=== PATIENT | male | born 1960 | race Caucasian/White ===

== ENCOUNTER 2023-07-09 08:14 | Outpatient (CLI) | payer OTHER ==
[2023-07-09] MEDS ORDERED: Iopamidol 370 76% 100 ML VIAL ONE (09:03)
== END 2023-07-09 08:15 | disposition home or self-care (01) ==
LOC: CT 08:14
PROVIDERS: ATTEND Family Medicine
DX: I71.40 Abdominal aortic aneurysm, without rupture, unspecified (principal)
CPT/HCPCS: 74175; Q9967

== ENCOUNTER 2023-07-21 07:23 | Outpatient (CLI) | payer OTHER ==
[2023-07-21] MEDS ORDERED: Iopamidol 370 76% 100 ML VIAL ONE ×2 (08:56→08:59)
== END 2023-07-21 07:24 | disposition home or self-care (01) ==
LOC: CT 07:23
PROVIDERS: ATTEND Family Medicine
DX: R91.8 Other nonspecific abnormal finding of lung field (principal); I70.0 Atherosclerosis of aorta; J98.09 Other diseases of bronchus, not elsewhere classified; I77.1 Stricture of artery; J98.11 Atelectasis; I70.203 Unspecified atherosclerosis of native arteries of extremities, bilateral legs
CPT/HCPCS: 71260; 75635; Q9967

== ENCOUNTER 2023-07-31 08:16 | Day surgery (SDC) | payer OTHER ==
[2023-07-30 13:03] VITALS: BMI 31.2
[2023-07-31] MEDS ORDERED: Sodium Chloride 0.9% 1,000 ML IV SCH (09:00)
[2023-07-31] MEDS ORDERED: Lidocaine 4% PF 5 ML AMP NEB SCH (09:00)
[2023-07-31] MEDS ORDERED: Ipratropium/Albuterol 3 ML NEB NEB SCH (09:00)
[2023-07-31] MEDS ORDERED: SUGAMMADEX SODIUM 200 MG/2 ML VIAL ONE (10:10)
[2023-07-31] MEDS ORDERED: fentaNYL PF 100 MCG/2 ML SYRINGE ONE (10:10)
[2023-07-31] MEDS ORDERED: Rocuronium Bromide 10 MG/ML (10ML VIAL) ONE (10:38)
[2023-07-31] MEDS ORDERED: PROPOFOL 200 MG/20 ML VIAL ONE (10:38)
[2023-07-31] MEDS ORDERED: Succinylcholine 200 MG/10 ml SYRINGE FS ONE (10:38)
[2023-07-31] MEDS ORDERED: Lidocaine 1% PF 5 ML VIAL ONE (10:38)
== END 2023-07-31 13:17 | disposition home or self-care (01) ==
LOC: SDC 08:16
PROVIDERS: ATTEND Internal Medicine
PROC: 0BBK8ZX Excision of Right Lung, Via Natural or Artificial Opening Endoscopic, Diagnostic (ICD-10-PCS; principal; 2023-07-31)
PROC: 0BB38ZX Excision of Right Main Bronchus, Via Natural or Artificial Opening Endoscopic, Diagnostic (ICD-10-PCS; principal; 2023-07-31)
DX: C34.91 Malignant neoplasm of unspecified part of right bronchus or lung (principal); C85.23 Mediastinal (thymic) large B-cell lymphoma, intra-abdominal lymph nodes; E11.9 Type 2 diabetes mellitus without complications; I10 Essential (primary) hypertension; I63.9 Cerebral infarction, unspecified; I71.40 Abdominal aortic aneurysm, without rupture, unspecified; I48.0 Paroxysmal atrial fibrillation; R59.0 Localized enlarged lymph nodes; Z87.891 Personal history of nicotine dependence; Z79.01 Long term (current) use of anticoagulants
CPT/HCPCS: 88172; 88173; 88177; 88305; 88341; 88342; 94640; J2704; J7620

== ENCOUNTER 2023-08-12 10:15 | Outpatient (CLI) | payer OTHER | END 2023-08-12 10:16 | disposition home or self-care (01) | LOC: PET 10:15 | PROVIDERS: ATTEND Internal Medicine | DX: C34.31 Malignant neoplasm of lower lobe, right bronchus or lung (principal); R91.8 Other nonspecific abnormal finding of lung field | CPT/HCPCS: 78815; A9552 ==

== ENCOUNTER 2023-08-12 12:34 | Outpatient (CLI) | payer OTHER | END 2023-08-12 12:35 | disposition home or self-care (01) | LOC: SCSMRI 12:34 | PROVIDERS: ATTEND Internal Medicine | DX: R29.898 Other symptoms and signs involving the musculoskeletal system (principal); C34.31 Malignant neoplasm of lower lobe, right bronchus or lung; R20.2 Paresthesia of skin; R20.0 Anesthesia of skin; M62.81 Muscle weakness (generalized) | CPT/HCPCS: 70553 ==

== ENCOUNTER 2023-10-13 10:13 | Inpatient (IN) | payer OTHER ==
[2023-10-13 11:05] LABS: #Monocytes 0.6 thou/uL (0.11-0.59); #Neutrophils 3.3 thou/uL (1.40-6.50); %Basophils 0.2 % (0.0-1.0); %Lymphocytes 3.6 % (21.0-51.0); %Neutrophils 78.2 % (42.0-75.0); Hematocrit 35.7 % (42.0-52.0); Hemoglobin 12.4 g/dL (14.0-18.0); Mean Corpuscular HGB CONC 34.7 g/dL (32.0-36.0); Mean Corpuscular Hemoglobin 30.8 pg (27.0-31.0); Mean Corpuscular Volume 88.6 fl (78.0-98.0); Mean Platelet Volume 9.1 fL (7.4-10.4); Platelet Count 125 10x3/uL (130-400); RBC Distribution Width 14.4 % (11.5-14.5); Red Blood Cell (RBC) Count 4.03 mill/uL (4.70-6.10); White Blood Cell (WBC) Count 4.2 10x3/uL (4.8-10.8)
[2023-10-13 11:23] LABS: INR-International Normal Ratio 1.4; PTT 35.3 sec (22.9-36.1); Prothrombin Time 17.8 sec (12.0-14.7)
[2023-10-13 11:27] LABS: ALT (SGPT) 12 U/L (8-55); AST (SGOT) 8 U/L (5-34); Albumin 3.5 g/dL (3.4-4.8); Alkaline Phosphatase 77 U/L (40-110); Anion Gap 18 mmol/L (10-20); BUN (Urea Nitrogen) 27 mg/dL (8.4-25.7); Bilirubin, Total 0.7 mg/dL (0.2-1.2); Calc. Creatinine Clearance 0 mL/min (70-130); Calcium 9.8 mg/dL (7.8-10.44); Carbon Dioxide 23 mmol/L (23-31); Chloride 93 mmol/L (98-107); Estimated GFR 52; Globulin 3.3 g/dL (2.4-3.5); Glucose 274 mg/dL (80-115); Lipase 15 U/L (8-78); Magnesium 1.8 mg/dL (1.6-2.6); Potassium 5.1 mmol/L (3.5-5.1); Protein, Total 6.8 g/dL (5.8-8.1); Sodium 129 mmol/L (136-145)
[2023-10-13 11:38] LABS: Troponin I Less than 0.010 ng/mL (< 0.028)
[2023-10-13] MEDS ORDERED: Amiodarone 150 MG/3 ML VIAL ONE (11:40)
[2023-10-13] MEDS ORDERED: Amiodarone 150 MG, Admixture Fee 1 EACH in Dextrose 5% in Water 100 ML IVPB SCH (12:00)
[2023-10-13] MEDS ORDERED: fentaNYL 50 mcg/mL 1 mL Vial ONE (12:03)
[2023-10-13] MEDS ORDERED: Midazolam HCl 5 mg/ml Vial ONE (12:03)
[2023-10-13] MEDS ORDERED: Amiodarone 450 MG, Admixture Fee 1 EACH in Dextrose 5% in Water 250 ML IVPB SCH (12:15)
[2023-10-13] MEDS ORDERED: Acetaminophen 325 MG TAB PO PRN (12:28)
[2023-10-13] MEDS ORDERED: NOREPINEPHRINE 8 MG/250 ML-D5W 250 ML ONE (12:38)
[2023-10-13] MEDS ORDERED: Dextrose 50% Abboject 50 ML SYRINGE SLOW IVP PRN (12:46)
[2023-10-13] MEDS ORDERED: Glucagon 1 MG/ML KIT IM PRN (12:46)
[2023-10-13] MEDS ORDERED: Dextrose 5% in Water 1,000 ML IV PRN (12:46)
[2023-10-13] MEDS ORDERED: Cefepime 2 GM VIAL ONE (12:48)
[2023-10-13] MEDS ORDERED: Sodium Chloride 0.9% 100 ML ONE (12:49)
[2023-10-13 12:57] LABS: SARS-CoV-2 NAA Rapid Test Not Detected (NotDetected)
[2023-10-13] MEDS ORDERED: Electrolyte Replacement Protocol 1 EACH FS SCH (13:00)
[2023-10-13] MEDS ORDERED: Magnesium 2 GM/50 ML(in water) 2 GM in Premix 1 BAG IVPB SCH ×2 (13:00→14:00)
[2023-10-13] MEDS ORDERED: Electrolyte Replacement Protocol FS PRN (13:30)
[2023-10-13] MEDS ORDERED: Vancomycin (BATCH) 2 GM in Premix 1 BAG IVPB SCH ×2 (13:45→18:30)
[2023-10-13 13:48] LABS: Hemoglobin A1c 9.1 % (4.0-6.0)
[2023-10-13 14:03] LABS: Lactic Acid 1.8 mmol/L (0.5-2.2)
[2023-10-13] MEDS ORDERED: Vancomycin (BATCH) 2 GM/500 ML BAG ONE (14:35)
[2023-10-13] MEDS ORDERED: Magnesium 2 GM/50 ML BAG (IN WATER) ONE (15:46)
[2023-10-13] MEDS ORDERED: metroNIDAZOLE 500 MG/100 ML BAG ONE (16:21)
[2023-10-13] MEDS: Sodium Chloride 0.9% 1,000 ML IV SCH ×2 (16:55→20:52)
[2023-10-13] MEDS: metroNIDAZOLE 500 MG in Premix 1 BAG IVPB SCH ×2 (17:50→21:57)
[2023-10-13 18:00] LABS: Legionella Urinary Ag Negative (Negative); Strep pneumo Urine Ag NEGATIVE (NEGATIVE)
[2023-10-13] MEDS ORDERED: Aluminum & Magnesium Hydroxide 60 ML, diphenhydrAMINE 150 MG, Lidocaine 2% Viscous Solu... SSP PRN (19:44)
[2023-10-13] MEDS ORDERED: NOREPINEPHRINE 8 MG/250 ML-D5W 250 ML IVPB SCH (19:45)
[2023-10-13] MEDS ORDERED: Digoxin 0.5 MG/2 ML AMP ONE (19:58)
[2023-10-13] MEDS ORDERED: Digoxin 0.5 MG/2 ML AMP SLOW IVP SCH (20:00)
[2023-10-13] MEDS: Sucralfate 1 GM/10 ML UDCUP PO SCH (20:46)
[2023-10-13] MEDS: Apixaban 5 MG TAB PO SCH (20:46)
[2023-10-13] MEDS ORDERED: Vancomycin 1 GM in Sodium Chloride 0.9% 250 ML 300 ML IVPB SCH (21:00)
[2023-10-13] MEDS ORDERED: Famotidine/PF 20 mg/2ml Vial SLOW IVP SCH (21:00)
[2023-10-13] MEDS: Ipratropium Bromide 2.5 ml Neb NEB SCH (23:58)
[2023-10-14] MEDS: Cefepime 1 GM in Sodium Chloride 0.9% 100 ML IVPB SCH ×2 (01:50→12:16)
[2023-10-14] MEDS: Sodium Chloride 0.9% 1,000 ML IV SCH ×2 (01:50→09:29)
[2023-10-14 05:26] LABS: #Monocytes 0.4 thou/uL (0.11-0.59); #Neutrophils 2.8 thou/uL (1.40-6.50); %Basophils 0.3 % (0.0-1.0); %Lymphocytes 3.2 % (21.0-51.0); %Monocytes 12.9 % (0.0-10.0); %Neutrophils 81.8 % (42.0-75.0); Hematocrit 28.2 % (42.0-52.0); Hemoglobin 9.7 g/dL (14.0-18.0); Mean Corpuscular HGB CONC 34.4 g/dL (32.0-36.0); Mean Corpuscular Hemoglobin 30.3 pg (27.0-31.0); Mean Corpuscular Volume 88.1 fl (78.0-98.0); Mean Platelet Volume 9.1 fL (7.4-10.4); RBC Distribution Width 14.6 % (11.5-14.5); White Blood Cell (WBC) Count 3.4 10x3/uL (4.8-10.8)
[2023-10-14] MEDS: metroNIDAZOLE 500 MG in Premix 1 BAG IVPB SCH (05:35)
[2023-10-14 06:01] LABS: Digoxin 0.38 ng/mL (0.8-2.0)
[2023-10-14 06:10] LABS: Iron 34 ug/dL (65-175); Iron Binding Capacity, Total 145 mcg/dL (261-462)
[2023-10-14 06:15] LABS: ALT (SGPT) 14 U/L (8-55); AST (SGOT) 12 U/L (5-34); Albumin 2.7 g/dL (3.4-4.8); Alkaline Phosphatase 70 U/L (40-110); Anion Gap 13 mmol/L (10-20); BUN (Urea Nitrogen) 15 mg/dL (8.4-25.7); Bilirubin, Direct 0.3 mg/dL (0.1-0.3); Bilirubin, Total 0.6 mg/dL (0.2-1.2); Calc. Creatinine Clearance 135 mL/min (70-130); Calcium 8.4 mg/dL (7.8-10.44); Carbon Dioxide 20 mmol/L (23-31); Chloride 104 mmol/L (98-107); Estimated GFR 103; Glucose 147 mg/dL (80-115); Iron 37 ug/dL (65-175); Iron Binding Capacity, Total 143 mcg/dL (261-462); Magnesium 1.7 mg/dL (1.6-2.6); Protein, Total 5.6 g/dL (5.8-8.1); Sodium 133 mmol/L (136-145)
[2023-10-14 06:16] LABS: Platelet Count 111 10x3/uL (130-400)
[2023-10-14 07:03] LABS: Ferritin 3894.1 ng/mL (22-322)
[2023-10-14] MEDS ORDERED: Amiodarone 450 MG in Dextrose 5% in Water 250 ML IVPB SCH (07:30)
[2023-10-14] MEDS: Sucralfate 1 GM/10 ML UDCUP PO SCH ×3 (07:49→20:49)
[2023-10-14] MEDS: Amiodarone 450 MG, Admixture Fee 1 EACH in Dextrose 5% in Water 250 ML IVPB SCH ×2 (07:50→23:09)
[2023-10-14] MEDS: Apixaban 5 MG TAB PO SCH ×2 (07:51→20:49)
[2023-10-14] MEDS: Pantoprazole 40 MG VIAL IVP SCH (07:56)
[2023-10-14] MEDS ORDERED: Magnesium 2 GM/50 ML(in water) 2 GM in Premix 1 BAG IVPB SCH (08:00)
[2023-10-14] MEDS: Ipratropium Bromide 2.5 ml Neb NEB SCH ×3 (08:08→18:42)
[2023-10-14] MEDS ORDERED: Vancomycin HCl 750 MG in Sodium Chloride 0.9% 250 ML 250 ML IVPB SCH (09:00)
[2023-10-14] MEDS: Gabapentin 300 MG CAP PO SCH ×3 (09:28→20:49)
[2023-10-14] MEDS: HumaLOG 300 UNITS/3 ML VIAL SC PRN (12:16)
[2023-10-15] MEDS: Ipratropium Bromide 2.5 ml Neb NEB SCH ×4 (00:18→18:11)
[2023-10-15] MEDS: Cefepime 1 GM in Sodium Chloride 0.9% 100 ML IVPB SCH ×2 (00:20→12:08)
[2023-10-15 05:06] LABS: #Monocytes 0.5 thou/uL (0.11-0.59); #Neutrophils 3.8 thou/uL (1.40-6.50); %Eosinophils 0.2 % (0.0-10.0); %Lymphocytes 2.3 % (21.0-51.0); %Monocytes 10.2 % (0.0-10.0); %Neutrophils 85.7 % (42.0-75.0); Hematocrit 28.3 % (42.0-52.0); Hemoglobin 9.8 g/dL (14.0-18.0); Mean Corpuscular HGB CONC 34.6 g/dL (32.0-36.0); Mean Corpuscular Hemoglobin 31.1 pg (27.0-31.0); Mean Corpuscular Volume 89.8 fl (78.0-98.0); Mean Platelet Volume 9.7 fL (7.4-10.4); Platelet Count 131 10x3/uL (130-400); RBC Distribution Width 14.8 % (11.5-14.5); Red Blood Cell (RBC) Count 3.15 mill/uL (4.70-6.10); White Blood Cell (WBC) Count 4.4 10x3/uL (4.8-10.8)
[2023-10-15 05:27] LABS: Anion Gap 14 mmol/L (10-20); BUN (Urea Nitrogen) 9 mg/dL (8.4-25.7); Calc. Creatinine Clearance 125 mL/min (70-130); Calcium 8.3 mg/dL (7.8-10.44); Carbon Dioxide 20 mmol/L (23-31); Chloride 102 mmol/L (98-107); Estimated GFR 101; Glucose 276 mg/dL (80-115); Magnesium 1.5 mg/dL (1.6-2.6); Potassium 3.8 mmol/L (3.5-5.1); Sodium 132 mmol/L (136-145)
[2023-10-15] MEDS: HumaLOG 300 UNITS/3 ML VIAL SC PRN ×4 (06:01→21:11)
[2023-10-15] MEDS: Sucralfate 1 GM/10 ML UDCUP PO SCH ×3 (07:52→21:12)
[2023-10-15] MEDS ORDERED: Magnesium 2 GM/50 ML(in water) 2 GM in Premix 1 BAG IVPB SCH (08:00)
[2023-10-15] MEDS: Sodium Chloride 0.9% 1,000 ML IV SCH (08:09)
[2023-10-15] MEDS: Pantoprazole 40 MG VIAL IVP SCH (08:18)
[2023-10-15] MEDS: Gabapentin 300 MG CAP PO SCH ×3 (08:18→21:11)
[2023-10-15] MEDS: Apixaban 5 MG TAB PO SCH ×2 (08:20→21:11)
[2023-10-15] MEDS ORDERED: Digoxin 0.5 MG/2 ML AMP SLOW IVP SCH ×3 (11:30→23:59)
[2023-10-15] MEDS ORDERED: Digoxin 0.5 MG/2 ML AMP ONE (11:31)
[2023-10-15] MEDS ORDERED: Furosemide 100 MG/10 ML VIAL SLOW IVP SCH (15:15)
[2023-10-15] MEDS: methylPREDNISolone Sod Succ 40 MG VIAL IVP SCH ×2 (15:29→21:09)
[2023-10-15] MEDS: LevoFLOXacin 750 mg/D5W 750 MG in Premix 1 BAG IVPB SCH (15:48)
[2023-10-15] MEDS: HYDROcodone/Acetaminophen 5/325 mg Tablet PO PRN (18:24)
[2023-10-15] MEDS: Rosuvastatin 20 MG TAB PO SCH (21:11)
[2023-10-15] MEDS: guaiFENesin ER 600 MG TAB PO SCH (21:11)
[2023-10-16] MEDS: Sodium Chloride 0.9% 1,000 ML IV SCH (00:15)
[2023-10-16] MEDS: Cefepime 1 GM in Sodium Chloride 0.9% 100 ML IVPB SCH ×2 (00:15→13:05)
[2023-10-16] MEDS: Ipratropium Bromide 2.5 ml Neb NEB SCH ×4 (00:37→18:02)
[2023-10-16] MEDS: methylPREDNISolone Sod Succ 40 MG VIAL IVP SCH ×4 (03:44→20:43)
[2023-10-16 04:28] LABS: #Monocytes 0.4 thou/uL (0.11-0.59); #Neutrophils 5.5 thou/uL (1.40-6.50); %Basophils 0.2 % (0.0-1.0); %Lymphocytes 1.5 % (21.0-51.0); %Monocytes 5.9 % (0.0-10.0); %Neutrophils 90.8 % (42.0-75.0); Hematocrit 31.1 % (42.0-52.0); Hemoglobin 10.6 g/dL (14.0-18.0); Mean Corpuscular HGB CONC 34.1 g/dL (32.0-36.0); Mean Corpuscular Hemoglobin 30.2 pg (27.0-31.0); Mean Corpuscular Volume 88.6 fl (78.0-98.0); Mean Platelet Volume 9.7 fL (7.4-10.4); Platelet Count 127 10x3/uL (130-400); RBC Distribution Width 14.6 % (11.5-14.5); Red Blood Cell (RBC) Count 3.51 mill/uL (4.70-6.10); White Blood Cell (WBC) Count 6.1 10x3/uL (4.8-10.8)
[2023-10-16] MEDS: Amiodarone 450 MG, Admixture Fee 1 EACH in Dextrose 5% in Water 250 ML IVPB SCH (04:28)
[2023-10-16 04:52] LABS: Anion Gap 16 mmol/L (10-20); BUN (Urea Nitrogen) 10 mg/dL (8.4-25.7); Calc. Creatinine Clearance 124 mL/min (70-130); Calcium 8.7 mg/dL (7.8-10.44); Carbon Dioxide 21 mmol/L (23-31); Chloride 100 mmol/L (98-107); Estimated GFR 101; Glucose 232 mg/dL (80-115); Magnesium 1.7 mg/dL (1.6-2.6); Potassium 4.2 mmol/L (3.5-5.1); Sodium 133 mmol/L (136-145)
[2023-10-16] MEDS ORDERED: Magnesium 2 GM/50 ML(in water) 2 GM in Premix 1 BAG IVPB SCH (05:00)
[2023-10-16] MEDS ORDERED: Metoprolol Tartrate 5 MG/5 ML VIAL IVP SCH (05:00)
[2023-10-16] MEDS: HumaLOG 300 UNITS/3 ML VIAL SC PRN ×4 (05:30→20:41)
[2023-10-16] MEDS: Gabapentin 300 MG CAP PO SCH ×3 (09:42→20:43)
[2023-10-16] MEDS: Sucralfate 1 GM/10 ML UDCUP PO SCH ×3 (09:42→21:50)
[2023-10-16] MEDS: Digoxin 0.25 MG TAB PO SCH (09:43)
[2023-10-16] MEDS: guaiFENesin ER 600 MG TAB PO SCH ×2 (09:43→20:43)
[2023-10-16] MEDS: Apixaban 5 MG TAB PO SCH ×2 (09:43→20:43)
[2023-10-16] MEDS: Pantoprazole 40 MG VIAL IVP SCH (09:43)
[2023-10-16] MEDS: LevoFLOXacin 750 mg/D5W 750 MG in Premix 1 BAG IVPB SCH (15:27)
[2023-10-16] MEDS ORDERED: Senokot S 8.6-50 MG TAB PO PRN (19:25)
[2023-10-16] MEDS: Rosuvastatin 20 MG TAB PO SCH (20:43)
[2023-10-17] MEDS: Ipratropium Bromide 2.5 ml Neb NEB SCH ×5 (00:05→22:18)
[2023-10-17] MEDS: Cefepime 1 GM in Sodium Chloride 0.9% 100 ML IVPB SCH ×2 (00:38→14:06)
[2023-10-17] MEDS: methylPREDNISolone Sod Succ 40 MG VIAL IVP SCH ×4 (03:25→20:00)
[2023-10-17 03:41] LABS: #Monocytes 0.5 thou/uL (0.11-0.59); %Basophils 0.1 % (0.0-1.0); %Lymphocytes 1.3 % (21.0-51.0); %Monocytes 7.8 % (0.0-10.0); %Neutrophils 88.6 % (42.0-75.0); Hematocrit 29.5 % (42.0-52.0); Hemoglobin 10.1 g/dL (14.0-18.0); Mean Corpuscular HGB CONC 34.2 g/dL (32.0-36.0); Mean Corpuscular Hemoglobin 30.8 pg (27.0-31.0); Mean Corpuscular Volume 89.9 fl (78.0-98.0); Mean Platelet Volume 9.4 fL (7.4-10.4); Platelet Count 141 10x3/uL (130-400); RBC Distribution Width 14.6 % (11.5-14.5); Red Blood Cell (RBC) Count 3.28 mill/uL (4.70-6.10); White Blood Cell (WBC) Count 6.8 10x3/uL (4.8-10.8)
[2023-10-17 04:03] LABS: Anion Gap 15 mmol/L (10-20); BUN (Urea Nitrogen) 13 mg/dL (8.4-25.7); Calc. Creatinine Clearance 129 mL/min (70-130); Calcium 8.8 mg/dL (7.8-10.44); Carbon Dioxide 23 mmol/L (23-31); Chloride 100 mmol/L (98-107); Estimated GFR 103; Glucose 213 mg/dL (80-115); Magnesium 1.9 mg/dL (1.6-2.6); Potassium 4.3 mmol/L (3.5-5.1); Sodium 134 mmol/L (136-145)
[2023-10-17 04:23] LABS: Digoxin 1.33 ng/mL (0.8-2.0)
[2023-10-17] MEDS: HumaLOG 300 UNITS/3 ML VIAL SC PRN ×4 (05:13→20:08)
[2023-10-17] MEDS ORDERED: Magnesium 2 GM/50 ML(in water) 2 GM in Premix 1 BAG IVPB SCH (08:00)
[2023-10-17] MEDS: guaiFENesin ER 600 MG TAB PO SCH ×2 (08:57→20:00)
[2023-10-17] MEDS: Apixaban 5 MG TAB PO SCH ×2 (08:57→20:00)
[2023-10-17] MEDS: Gabapentin 300 MG CAP PO SCH ×3 (08:57→20:00)
[2023-10-17] MEDS: Polyethylene Glycol 3350 17 GM Packet PO SCH (08:59)
[2023-10-17] MEDS: Pantoprazole 40 MG VIAL IVP SCH (08:59)
[2023-10-17] MEDS: Digoxin 0.25 MG TAB PO SCH (08:59)
[2023-10-17] MEDS ORDERED: Digoxin 0.25 MG TAB PO SCH (09:00)
[2023-10-17] MEDS: Sucralfate 1 GM/10 ML UDCUP PO SCH ×3 (09:00→20:00)
[2023-10-17] MEDS: Amiodarone 450 MG, Admixture Fee 1 EACH in Dextrose 5% in Water 250 ML IVPB SCH (10:01)
[2023-10-17] MEDS: LevoFLOXacin 750 mg/D5W 750 MG in Premix 1 BAG IVPB SCH (16:32)
[2023-10-17] MEDS: Rosuvastatin 20 MG TAB PO SCH (20:00)
[2023-10-17 21:37] LABS: Mycoplasma pneumoniae IgG AB 480 U/mL (0-99); Mycoplasma pneumoniae IgM AB Less than 770 U/mL (0-769)
[2023-10-18] MEDS: methylPREDNISolone Sod Succ 40 MG VIAL IVP SCH ×4 (02:01→20:04)
[2023-10-18] MEDS: Cefepime 1 GM in Sodium Chloride 0.9% 100 ML IVPB SCH (02:01)
[2023-10-18] MEDS: Amiodarone 450 MG, Admixture Fee 1 EACH in Dextrose 5% in Water 250 ML IVPB SCH ×2 (02:01→13:46)
[2023-10-18 04:41] LABS: #Monocytes 0.5 thou/uL (0.11-0.59); #Neutrophils 5.1 thou/uL (1.40-6.50); %Basophils 0.2 % (0.0-1.0); %Lymphocytes 1.2 % (21.0-51.0); %Monocytes 8.6 % (0.0-10.0); %Neutrophils 88.1 % (42.0-75.0); Hematocrit 28.2 % (42.0-52.0); Hemoglobin 9.6 g/dL (14.0-18.0); Mean Corpuscular Hemoglobin 30.5 pg (27.0-31.0); Mean Corpuscular Volume 89.5 fl (78.0-98.0); Mean Platelet Volume 9.6 fL (7.4-10.4); Platelet Count 142 10x3/uL (130-400); Red Blood Cell (RBC) Count 3.15 mill/uL (4.70-6.10); White Blood Cell (WBC) Count 5.7 10x3/uL (4.8-10.8)
[2023-10-18 05:11] LABS: Anion Gap 12 mmol/L (10-20); BUN (Urea Nitrogen) 22 mg/dL (8.4-25.7); Calc. Creatinine Clearance 121 mL/min (70-130); Calcium 8.7 mg/dL (7.8-10.44); Carbon Dioxide 24 mmol/L (23-31); Chloride 98 mmol/L (98-107); Estimated GFR 101; Glucose 244 mg/dL (80-115); Potassium 4.3 mmol/L (3.5-5.1); Sodium 130 mmol/L (136-145)
[2023-10-18] MEDS: HumaLOG 300 UNITS/3 ML VIAL SC PRN ×4 (06:18→20:06)
[2023-10-18] MEDS: Ipratropium Bromide 2.5 ml Neb NEB SCH ×4 (07:03→22:43)
[2023-10-18] MEDS ORDERED: Magnesium 2 GM/50 ML(in water) 2 GM in Premix 1 BAG IVPB SCH (08:00)
[2023-10-18] MEDS: Polyethylene Glycol 3350 17 GM Packet PO SCH (08:18)
[2023-10-18] MEDS: Gabapentin 300 MG CAP PO SCH ×3 (08:19→20:03)
[2023-10-18] MEDS: Digoxin 0.25 MG TAB PO SCH (08:19)
[2023-10-18] MEDS: guaiFENesin ER 600 MG TAB PO SCH ×2 (08:19→20:03)
[2023-10-18] MEDS: Apixaban 5 MG TAB PO SCH ×2 (08:19→20:03)
[2023-10-18] MEDS: Insulin Glargine 30 UNITS/0.3 ML VIAL SC SCH (08:20)
[2023-10-18] MEDS: Pantoprazole 40 MG VIAL IVP SCH (08:21)
[2023-10-18] MEDS: Sucralfate 1 GM/10 ML UDCUP PO SCH ×3 (10:33→20:47)
[2023-10-18] MEDS: LevoFLOXacin 750 MG TAB PO SCH (11:57)
[2023-10-18] MEDS: Rosuvastatin 20 MG TAB PO SCH (20:03)
[2023-10-18] MEDS: metFORMIN 500 MG TAB PO SCH (21:02)
[2023-10-19] MEDS: methylPREDNISolone Sod Succ 40 MG VIAL IVP SCH ×4 (02:50→20:05)
[2023-10-19 04:49] LABS: #Monocytes 0.5 thou/uL (0.11-0.59); #Neutrophils 5.2 thou/uL (1.40-6.50); %Basophils 0.2 % (0.0-1.0); %Lymphocytes 1.2 % (21.0-51.0); %Monocytes 9.1 % (0.0-10.0); %Neutrophils 87.5 % (42.0-75.0); Hematocrit 28.8 % (42.0-52.0); Hemoglobin 9.9 g/dL (14.0-18.0); Mean Corpuscular HGB CONC 34.4 g/dL (32.0-36.0); Mean Corpuscular Hemoglobin 30.8 pg (27.0-31.0); Mean Corpuscular Volume 89.7 fl (78.0-98.0); Mean Platelet Volume 9.4 fL (7.4-10.4); Platelet Count 153 10x3/uL (130-400); Red Blood Cell (RBC) Count 3.21 mill/uL (4.70-6.10)
[2023-10-19] MEDS: Amiodarone 450 MG, Admixture Fee 1 EACH in Dextrose 5% in Water 250 ML IVPB SCH ×2 (04:57→17:12)
[2023-10-19 05:14] LABS: Anion Gap 15 mmol/L (10-20); BUN (Urea Nitrogen) 21 mg/dL (8.4-25.7); Calc. Creatinine Clearance 134 mL/min (70-130); Calcium 8.9 mg/dL (7.8-10.44); Carbon Dioxide 25 mmol/L (23-31); Chloride 98 mmol/L (98-107); Estimated GFR 102; Glucose 238 mg/dL (80-115); Magnesium 2.5 mg/dL (1.6-2.6); Potassium 4.8 mmol/L (3.5-5.1); Sodium 133 mmol/L (136-145)
[2023-10-19] MEDS: HumaLOG 300 UNITS/3 ML VIAL SC PRN ×3 (05:57→16:32)
[2023-10-19] MEDS: Ipratropium Bromide 2.5 ml Neb NEB SCH ×4 (06:52→22:13)
[2023-10-19] MEDS: Pantoprazole 40 MG VIAL IVP SCH (07:50)
[2023-10-19] MEDS: Polyethylene Glycol 3350 17 GM Packet PO SCH (07:50)
[2023-10-19] MEDS: Alogliptin 25 MG TAB PO SCH (07:50)
[2023-10-19] MEDS: metFORMIN 500 MG TAB PO SCH ×2 (07:51→20:05)
[2023-10-19] MEDS: glipiZIDE 5 MG TAB PO SCH (07:51)
[2023-10-19] MEDS: Gabapentin 300 MG CAP PO SCH ×3 (07:51→20:05)
[2023-10-19] MEDS: Apixaban 5 MG TAB PO SCH ×2 (07:52→20:05)
[2023-10-19] MEDS: Digoxin 0.25 MG TAB PO SCH (07:52)
[2023-10-19] MEDS: Insulin Glargine 30 UNITS/0.3 ML VIAL SC SCH (07:52)
[2023-10-19] MEDS: Sucralfate 1 GM/10 ML UDCUP PO SCH ×3 (07:53→21:07)
[2023-10-19] MEDS ORDERED: guaiFENesin ER 600 MG TAB PO SCH (08:00)
[2023-10-19] MEDS: guaiFENesin ER 600 MG TAB PO SCH ×2 (08:17→20:05)
[2023-10-19] MEDS: LevoFLOXacin 750 MG TAB PO SCH (11:44)
[2023-10-19] MEDS: Rosuvastatin 20 MG TAB PO SCH (20:05)
[2023-10-20] MEDS: methylPREDNISolone Sod Succ 40 MG VIAL IVP SCH ×4 (03:28→19:29)
[2023-10-20 04:17] LABS: #Monocytes 0.7 thou/uL (0.11-0.59); #Neutrophils 7.5 thou/uL (1.40-6.50); %Basophils 0.3 % (0.0-1.0); %Lymphocytes 1.2 % (21.0-51.0); %Monocytes 8.2 % (0.0-10.0); %Neutrophils 86.8 % (42.0-75.0); Hematocrit 29.7 % (42.0-52.0); Hemoglobin 9.9 g/dL (14.0-18.0); Mean Corpuscular HGB CONC 33.3 g/dL (32.0-36.0); Mean Corpuscular Hemoglobin 30.1 pg (27.0-31.0); Mean Corpuscular Volume 90.3 fl (78.0-98.0); Mean Platelet Volume 9.6 fL (7.4-10.4); Platelet Count 155 10x3/uL (130-400); Red Blood Cell (RBC) Count 3.29 mill/uL (4.70-6.10); White Blood Cell (WBC) Count 8.6 10x3/uL (4.8-10.8)
[2023-10-20 04:38] LABS: Anion Gap 14 mmol/L (10-20); BUN (Urea Nitrogen) 23 mg/dL (8.4-25.7); Calc. Creatinine Clearance 134 mL/min (70-130); Calcium 8.8 mg/dL (7.8-10.44); Carbon Dioxide 27 mmol/L (23-31); Chloride 96 mmol/L (98-107); Estimated GFR 102; Glucose 144 mg/dL (80-115); Magnesium 1.9 mg/dL (1.6-2.6); Potassium 4.5 mmol/L (3.5-5.1); Sodium 132 mmol/L (136-145)
[2023-10-20] MEDS: Ipratropium Bromide 2.5 ml Neb NEB SCH ×3 (07:00→19:01)
[2023-10-20] MEDS: glipiZIDE 5 MG TAB PO SCH (07:22)
[2023-10-20] MEDS ORDERED: Magnesium 2 GM/50 ML(in water) 2 GM in Premix 1 BAG IVPB SCH (08:00)
[2023-10-20] MEDS: Digoxin 0.25 MG TAB PO SCH (08:39)
[2023-10-20] MEDS: Alogliptin 25 MG TAB PO SCH (08:39)
[2023-10-20] MEDS: Apixaban 5 MG TAB PO SCH ×2 (08:39→19:28)
[2023-10-20] MEDS: guaiFENesin ER 600 MG TAB PO SCH ×2 (08:39→19:29)
[2023-10-20] MEDS: Pantoprazole 40 MG VIAL IVP SCH (08:40)
[2023-10-20] MEDS: Gabapentin 300 MG CAP PO SCH ×3 (08:40→19:27)
[2023-10-20] MEDS: metFORMIN 500 MG TAB PO SCH ×2 (08:40→19:27)
[2023-10-20] MEDS: Insulin Glargine 30 UNITS/0.3 ML VIAL SC SCH (09:02)
[2023-10-20] MEDS: Sucralfate 1 GM/10 ML UDCUP PO SCH ×3 (09:02→19:30)
[2023-10-20] MEDS: Polyethylene Glycol 3350 17 GM Packet PO SCH (09:02)
[2023-10-20] MEDS: LevoFLOXacin 750 MG TAB PO SCH (11:35)
[2023-10-20] MEDS: HYDROcodone/Acetaminophen 5/325 mg Tablet PO PRN (17:14)
[2023-10-20] MEDS: Amiodarone 200 MG TAB PO SCH (19:28)
[2023-10-20] MEDS: Rosuvastatin 20 MG TAB PO SCH (19:29)
[2023-10-21] MEDS: Ipratropium Bromide 2.5 ml Neb NEB SCH ×5 (00:21→23:46)
[2023-10-21] MEDS: methylPREDNISolone Sod Succ 40 MG VIAL IVP SCH ×4 (04:25→20:34)
[2023-10-21] MEDS ORDERED: Phenol 177 ML BOT PO PRN (05:16)
[2023-10-21 05:17] LABS: Digoxin 1.12 ng/mL (0.8-2.0)
[2023-10-21 05:21] LABS: Magnesium 1.9 mg/dL (1.6-2.6)
[2023-10-21] MEDS: glipiZIDE 5 MG TAB PO SCH (07:36)
[2023-10-21] MEDS ORDERED: Magnesium 2 GM/50 ML(in water) 2 GM in Premix 1 BAG IVPB SCH (08:30)
[2023-10-21] MEDS: Amiodarone 200 MG TAB PO SCH ×2 (08:33→20:30)
[2023-10-21] MEDS: Gabapentin 300 MG CAP PO SCH ×3 (08:33→20:32)
[2023-10-21] MEDS: Alogliptin 25 MG TAB PO SCH (08:33)
[2023-10-21] MEDS: Apixaban 5 MG TAB PO SCH ×2 (08:34→20:31)
[2023-10-21] MEDS: metFORMIN 500 MG TAB PO SCH ×2 (08:34→20:31)
[2023-10-21] MEDS: guaiFENesin ER 600 MG TAB PO SCH ×2 (08:34→20:31)
[2023-10-21] MEDS: Polyethylene Glycol 3350 17 GM Packet PO SCH (08:38)
[2023-10-21] MEDS: Insulin Glargine 30 UNITS/0.3 ML VIAL SC SCH (08:38)
[2023-10-21] MEDS: Sucralfate 1 GM/10 ML UDCUP PO SCH ×3 (09:07→20:35)
[2023-10-21] MEDS: LevoFLOXacin 750 MG TAB PO SCH (11:13)
[2023-10-21] MEDS: HumaLOG 300 UNITS/3 ML VIAL SC PRN (16:53)
[2023-10-21] MEDS ORDERED: Melatonin 3 MG TAB PO PRN (16:56)
[2023-10-21] MEDS ORDERED: Ipratropium/Albuterol 3 ML NEB NEB PRN (17:05)
[2023-10-21] MEDS: Rosuvastatin 20 MG TAB PO SCH (20:31)
[2023-10-22] MEDS: Ondansetron PF 4 MG/2 ML Vial IVP PRN (00:15)
[2023-10-22] MEDS: methylPREDNISolone Sod Succ 40 MG VIAL IVP SCH ×2 (04:10→09:58)
[2023-10-22 04:41] LABS: Hematocrit 31.3 % (42.0-52.0); Hemoglobin 10.4 g/dL (14.0-18.0); Mean Corpuscular HGB CONC 33.2 g/dL (32.0-36.0); Mean Corpuscular Hemoglobin 30.1 pg (27.0-31.0); Mean Corpuscular Volume 90.7 fl (78.0-98.0); Mean Platelet Volume 9.5 fL (7.4-10.4); Platelet Count 143 10x3/uL (130-400); RBC Distribution Width 15.2 % (11.5-14.5); Red Blood Cell (RBC) Count 3.45 mill/uL (4.70-6.10)
[2023-10-22 04:44] LABS: Delete Auto Diff?? YES; Manual Diff?? YES
[2023-10-22 05:12] LABS: ALT (SGPT) 12 U/L (8-55); AST (SGOT) 9 U/L (5-34); Albumin 3.1 g/dL (3.4-4.8); Alkaline Phosphatase 95 U/L (40-110); Anion Gap 15 mmol/L (10-20); BUN (Urea Nitrogen) 28 mg/dL (8.4-25.7); Bilirubin, Total 0.4 mg/dL (0.2-1.2); Calc. Creatinine Clearance 128 mL/min (70-130); Calcium 8.5 mg/dL (7.8-10.44); Carbon Dioxide 24 mmol/L (23-31); Chloride 96 mmol/L (98-107); Estimated GFR 101; Globulin 2.6 g/dL (2.4-3.5); Glucose 114 mg/dL (80-115); Magnesium 2.1 mg/dL (1.6-2.6); Potassium 4.6 mmol/L (3.5-5.1); Protein, Total 5.7 g/dL (5.8-8.1); Sodium 130 mmol/L (136-145)
[2023-10-22 05:13] LABS: Band 4 % (5-11); CellaVision Operator ID LAB.CLH1; Eosinophils 1 % (0-10); Hypochromia SLIGHT = 6-15 cells HPF (0-5); Metamyelocyte 1 % (0-0); Monocytes 5 % (0-10); Myelocyte 1 % (0-0); Neutrophil 87 % (42-75); Platelet Adequacy Comment Platelets Normal; Polychromasia SLIGHT = 2-3 cells HPF (0-2); Promyelocytes 1 % (0-0); Total Cell Count 99
[2023-10-22] MEDS: Ipratropium Bromide 2.5 ml Neb NEB SCH ×4 (07:08→23:15)
[2023-10-22] MEDS: Alogliptin 25 MG TAB PO SCH (09:40)
[2023-10-22] MEDS: glipiZIDE 5 MG TAB PO SCH (09:40)
[2023-10-22] MEDS: Polyethylene Glycol 3350 17 GM Packet PO SCH (09:45)
[2023-10-22] MEDS: metFORMIN 500 MG TAB PO SCH ×2 (09:47→20:23)
[2023-10-22] MEDS: Apixaban 5 MG TAB PO SCH ×2 (09:54→20:23)
[2023-10-22] MEDS: Amiodarone 200 MG TAB PO SCH ×2 (09:54→20:23)
[2023-10-22] MEDS: guaiFENesin ER 600 MG TAB PO SCH ×2 (09:54→20:23)
[2023-10-22] MEDS: Sucralfate 1 GM/10 ML UDCUP PO SCH ×3 (09:54→20:25)
[2023-10-22] MEDS: Gabapentin 300 MG CAP PO SCH ×3 (09:57→20:23)
[2023-10-22 09:59] VITALS: BP 125/74
[2023-10-22] MEDS: Insulin Glargine 30 UNITS/0.3 ML VIAL SC SCH (09:59)
[2023-10-22] MEDS: LevoFLOXacin 750 MG TAB PO SCH (11:58)
[2023-10-22] MEDS ORDERED: predniSONE 20 MG TAB PO SCH (13:00)
[2023-10-22] MEDS: HumaLOG 300 UNITS/3 ML VIAL SC PRN (15:04)
[2023-10-22] MEDS: Rosuvastatin 20 MG TAB PO SCH (20:23)
[2023-10-22] MEDS ORDERED: Sulfameth/Trimethoprim DS 800-160mg TAB PO SCH (21:00)
[2023-10-22] MEDS ORDERED: Digoxin 0.5 MG/2 ML AMP SLOW IVP SCH (21:30)
[2023-10-23] MEDS: HumaLOG 300 UNITS/3 ML VIAL SC PRN (06:34)
[2023-10-23] MEDS: Ipratropium Bromide 2.5 ml Neb NEB SCH ×4 (06:50→23:00)
[2023-10-23] MEDS: Amiodarone 200 MG TAB PO SCH ×2 (07:30→20:20)
[2023-10-23] MEDS: glipiZIDE 5 MG TAB PO SCH (07:43)
[2023-10-23] MEDS ORDERED: predniSONE 20 MG TAB PO SCH (08:00)
[2023-10-23] MEDS: Polyethylene Glycol 3350 17 GM Packet PO SCH (09:00)
[2023-10-23] MEDS: metFORMIN 500 MG TAB PO SCH ×2 (09:34→20:19)
[2023-10-23] MEDS: Alogliptin 25 MG TAB PO SCH (09:35)
[2023-10-23] MEDS: guaiFENesin ER 600 MG TAB PO SCH ×2 (09:36→20:19)
[2023-10-23] MEDS: Apixaban 5 MG TAB PO SCH ×2 (09:37→20:20)
[2023-10-23] MEDS: Gabapentin 300 MG CAP PO SCH ×3 (09:37→20:19)
[2023-10-23] MEDS: Insulin Glargine 30 UNITS/0.3 ML VIAL SC SCH (09:41)
[2023-10-23] MEDS: Sucralfate 1 GM/10 ML UDCUP PO SCH ×3 (09:53→20:20)
[2023-10-23] MEDS ORDERED: Sertraline 25 MG TAB PO SCH (12:30)
[2023-10-23] MEDS: ALPRAZolam 0.25 MG TAB PO PRN (13:01)
[2023-10-23] MEDS: Rosuvastatin 20 MG TAB PO SCH (20:20)
[2023-10-24] MEDS: ALPRAZolam 0.25 MG TAB PO PRN (04:43)
[2023-10-24] MEDS: Ondansetron PF 4 MG/2 ML Vial IVP PRN (04:50)
[2023-10-24] MEDS ORDERED: predniSONE 20 MG TAB PO SCH (08:00)
[2023-10-24] MEDS: Ipratropium Bromide 2.5 ml Neb NEB SCH ×2 (08:08→11:59)
[2023-10-24] MEDS: Gabapentin 300 MG CAP PO SCH ×2 (08:09→14:59)
[2023-10-24] MEDS: guaiFENesin ER 600 MG TAB PO SCH (08:09)
[2023-10-24] MEDS: Sucralfate 1 GM/10 ML UDCUP PO SCH ×3 (08:09→15:01)
[2023-10-24] MEDS: Amiodarone 200 MG TAB PO SCH (08:10)
[2023-10-24] MEDS: Insulin Glargine 30 UNITS/0.3 ML VIAL SC SCH ×2 (08:16→10:59)
[2023-10-24] MEDS: metFORMIN 500 MG TAB PO SCH ×2 (08:16→10:59)
[2023-10-24] MEDS: Polyethylene Glycol 3350 17 GM Packet PO SCH (08:16)
[2023-10-24] MEDS: glipiZIDE 5 MG TAB PO SCH ×2 (08:16→10:59)
[2023-10-24] MEDS: Alogliptin 25 MG TAB PO SCH ×2 (08:16→10:59)
[2023-10-24] MEDS ORDERED: Sertraline 25 MG TAB PO SCH (09:00)
[2023-10-24 09:35] VITALS: BMI 27.6
[2023-10-24 15:55] VITALS: TEMP 97.7
[2023-10-24] MEDS: HumaLOG 300 UNITS/3 ML VIAL SC PRN (16:26)
== END 2023-10-24 18:13 | disposition home or self-care (01) | DRG 205 ==
LOC: ERS 10:13 → ERHOLD 12:28 → CCU 19:46
PROVIDERS: ADMIT Family Medicine; ATTEND Family Medicine
PROC: 3E033XZ Introduction of Vasopressor into Peripheral Vein, Percutaneous Approach (ICD-10-PCS; principal; 2023-10-13)
PROC: 5A2204Z Restoration of Cardiac Rhythm, Single (ICD-10-PCS; 2023-10-13)
PROC: 5A0945A Assistance with Respiratory Ventilation, 24-96 Consecutive Hours, High Flow/Velocity Cannula (ICD-10-PCS; 2023-10-15)
PROC: 5A09357 Assistance with Respiratory Ventilation, Less than 24 Consecutive Hours, Continuous Positive Airway Pressure (ICD-10-PCS; 2023-10-17)
DX: J70.0 Acute pulmonary manifestations due to radiation (principal); D61.810 Antineoplastic chemotherapy induced pancytopenia; J96.21 Acute and chronic respiratory failure with hypoxia; R57.0 Cardiogenic shock; I48.92 Unspecified atrial flutter; C34.91 Malignant neoplasm of unspecified part of right bronchus or lung; E87.1 Hypo-osmolality and hyponatremia; N17.9 Acute kidney failure, unspecified; Q25.1 Coarctation of aorta; J44.0 Chronic obstructive pulmonary disease with (acute) lower respiratory infection; J44.1 Chronic obstructive pulmonary disease with (acute) exacerbation; J22 Unspecified acute lower respiratory infection; I48.0 Paroxysmal atrial fibrillation; K20.80 Other esophagitis without bleeding; I95.9 Hypotension, unspecified; Z79.84 Long term (current) use of oral hypoglycemic drugs; E78.00 Pure hypercholesterolemia, unspecified; F12.10 Cannabis abuse, uncomplicated; F17.210 Nicotine dependence, cigarettes, uncomplicated; I10 Essential (primary) hypertension; T50.905A Adverse effect of unspecified drugs, medicaments and biological substances, initial encounter; E11.40 Type 2 diabetes mellitus with diabetic neuropathy, unspecified; Z92.3 Personal history of irradiation; Z92.21 Personal history of antineoplastic chemotherapy; Z79.899 Other long term (current) drug therapy; Z79.01 Long term (current) use of anticoagulants; Z11.52 Encounter for screening for COVID-19; E11.51 Type 2 diabetes mellitus with diabetic peripheral angiopathy without gangrene
CPT/HCPCS: 36415; 36416; 71045; 71275; 80048; 80053; 80076; 80162; 82533; 82607; 82728; 83036; 83540; 83550; 83605; 83690; 83735; 83880; 84100; 84145; 84443; 84484; 85025; 85046; 85610; 85730; 86850; 86900; 86901; 87040; 87070; 87081; 87205; 87449; 87899; 92960; 93005; 93010; 93306; 93970; 94640; 94660; 96365; 96366; 96368; 96375; 96376; 97139; C9113; J0282; J0692; J1160; J1815; J1940; J1956; J2250; J2405; J2920; J3010; J3370; J3475; J3490; J7050; J7070; J7512

== ENCOUNTER 2023-11-01 10:54 | Inpatient (IN) | payer OTHER ==
[2023-11-01] MEDS ORDERED: Acetaminophen 325 MG TAB PO PRN (15:43)
[2023-11-01] MEDS ORDERED: Sodium Chloride 0.9% 1,000 ML IV SCH (16:00)
[2023-11-01] MEDS ORDERED: Gabapentin 300 MG CAP PO SCH (16:15)
[2023-11-01] MEDS ORDERED: Vancomycin (BATCH) 2 GM in Premix 1 BAG IVPB SCH (16:15)
[2023-11-01] MEDS ORDERED: ALPRAZolam 0.5 MG TAB PO SCH (16:15)
[2023-11-01] MEDS ORDERED: predniSONE 20 MG TAB PO SCH (16:45)
[2023-11-01 17:28] LABS: Anion Gap 17 mmol/L (10-20); BUN (Urea Nitrogen) 12 mg/dL (8.4-25.7); Calc. Creatinine Clearance 111 mL/min (70-130); Calcium 8.4 mg/dL (7.8-10.44); Carbon Dioxide 20 mmol/L (23-31); Chloride 97 mmol/L (98-107); Estimated GFR 99; Glucose 305 mg/dL (80-115); Sodium 129 mmol/L (136-145)
[2023-11-01] MEDS: Ipratropium/Albuterol 3 ML NEB NEB SCH (18:17)
[2023-11-01] MEDS: Sodium Chloride 0.9% 1,000 ML IV SCH (18:33)
[2023-11-01 20:11] LABS: Lactic Acid 6.4 mmol/L (0.5-2.2)
[2023-11-01] MEDS: Cefepime 2 GM in Sodium Chloride 0.9% 100 ML IVPB SCH (21:34)
[2023-11-01] MEDS: Famotidine 20 MG TAB PO SCH (21:34)
[2023-11-01] MEDS: Gabapentin 300 MG CAP PO SCH (21:35)
[2023-11-01] MEDS ORDERED: HYDROcodone/Acetaminophen 5/325 mg Tablet PO PRN (22:42)
[2023-11-01] MEDS ORDERED: Dextrose 5% in Water 1,000 ML IV PRN (22:44)
[2023-11-01] MEDS ORDERED: Dextrose 50% Abboject 50 ML SYRINGE SLOW IVP PRN (22:44)
[2023-11-01] MEDS ORDERED: Glucagon 1 MG/ML KIT IM PRN (22:44)
[2023-11-01] MEDS ORDERED: Amiodarone 200 MG TAB PO SCH (22:45)
[2023-11-02] MEDS: Sodium Chloride 0.9% 1,000 ML IV SCH ×2 (02:44→15:37)
[2023-11-02 03:13] LABS: Lactic Acid 2.9 mmol/L (0.5-2.2)
[2023-11-02 04:45] LABS: #Monocytes 0.5 thou/uL (0.11-0.59); #Neutrophils 7.3 thou/uL (1.40-6.50); %Monocytes 6.2 % (0.0-10.0); %Neutrophils 90.9 % (42.0-75.0); Hematocrit 30.9 % (42.0-52.0); Hemoglobin 10.5 g/dL (14.0-18.0); Mean Corpuscular Hemoglobin 31.3 pg (27.0-31.0); Mean Platelet Volume 9.5 fL (7.4-10.4); Platelet Count 131 10x3/uL (130-400); RBC Distribution Width 16.7 % (11.5-14.5); Red Blood Cell (RBC) Count 3.36 mill/uL (4.70-6.10)
[2023-11-02 05:11] LABS: ALT (SGPT) 16 U/L (8-55); AST (SGOT) 9 U/L (5-34); Albumin 2.9 g/dL (3.4-4.8); Alkaline Phosphatase 77 U/L (40-110); Anion Gap 12 mmol/L (10-20); BUN (Urea Nitrogen) 10 mg/dL (8.4-25.7); Bilirubin, Total 0.5 mg/dL (0.2-1.2); Calc. Creatinine Clearance 121 mL/min (70-130); Calcium 8.4 mg/dL (7.8-10.44); Carbon Dioxide 25 mmol/L (23-31); Chloride 101 mmol/L (98-107); Estimated GFR 101; Globulin 2.3 g/dL (2.4-3.5); Glucose 174 mg/dL (80-115); Potassium 5.1 mmol/L (3.5-5.1); Protein, Total 5.2 g/dL (5.8-8.1); Sodium 133 mmol/L (136-145)
[2023-11-02] MEDS: Vancomycin (BATCH) 1.5 GM in Premix 1 BAG IVPB SCH (06:00)
[2023-11-02] MEDS: Ipratropium/Albuterol 3 ML NEB NEB SCH ×4 (06:47→19:03)
[2023-11-02] MEDS: glipiZIDE 5 MG TAB PO SCH (08:30)
[2023-11-02] MEDS: Amiodarone 200 MG TAB PO SCH ×2 (08:30→20:25)
[2023-11-02] MEDS: Sertraline 25 MG TAB PO SCH (08:30)
[2023-11-02] MEDS: Famotidine 20 MG TAB PO SCH ×2 (08:30→20:23)
[2023-11-02] MEDS: Apixaban 5 MG TAB PO SCH ×2 (08:31→20:26)
[2023-11-02] MEDS: predniSONE 20 MG TAB PO SCH (08:31)
[2023-11-02] MEDS: Gabapentin 300 MG CAP PO SCH ×3 (08:31→20:23)
[2023-11-02] MEDS: Alogliptin 25 MG TAB PO SCH (08:31)
[2023-11-02] MEDS: Cefepime 2 GM in Sodium Chloride 0.9% 100 ML IVPB SCH ×2 (08:32→20:41)
[2023-11-02] MEDS: ALPRAZolam 0.25 MG TAB PO PRN (16:59)
[2023-11-02] MEDS: Budesonide 0.5 MG/2 ML NEB INH SCH (19:03)
[2023-11-02] MEDS: dilTIAZem 125 MG in Sodium Chloride 0.9% 100 ML IVPB SCH (19:54)
[2023-11-02] MEDS: HumaLOG 300 UNITS/3 ML VIAL SC PRN (20:26)
[2023-11-03] MEDS: Vancomycin (BATCH) 1.5 GM in Premix 1 BAG IVPB SCH (00:01)
[2023-11-03] MEDS: Sodium Chloride 0.9% 1,000 ML IV SCH ×3 (00:01→18:34)
[2023-11-03 06:40] LABS: #Monocytes 0.4 thou/uL (0.11-0.59); #Neutrophils 8.7 thou/uL (1.40-6.50); %Basophils 0.2 % (0.0-1.0); %Eosinophils 0.3 % (0.0-10.0); %Lymphocytes 1.4 % (21.0-51.0); %Monocytes 4.6 % (0.0-10.0); %Neutrophils 92.1 % (42.0-75.0); Hematocrit 32.7 % (42.0-52.0); Hemoglobin 10.8 g/dL (14.0-18.0); Mean Corpuscular Hemoglobin 30.4 pg (27.0-31.0); Mean Corpuscular Volume 92.1 fl (78.0-98.0); Mean Platelet Volume 9.3 fL (7.4-10.4); Platelet Count 115 10x3/uL (130-400); RBC Distribution Width 16.9 % (11.5-14.5); Red Blood Cell (RBC) Count 3.55 mill/uL (4.70-6.10); White Blood Cell (WBC) Count 9.4 10x3/uL (4.8-10.8)
[2023-11-03] MEDS: HumaLOG 300 UNITS/3 ML VIAL SC PRN ×4 (06:45→22:53)
[2023-11-03 07:01] LABS: Anion Gap 15 mmol/L (10-20); BUN (Urea Nitrogen) 10 mg/dL (8.4-25.7); Calc. Creatinine Clearance 131 mL/min (70-130); Calcium 8.1 mg/dL (7.8-10.44); Carbon Dioxide 21 mmol/L (23-31); Chloride 103 mmol/L (98-107); Estimated GFR 104; Glucose 215 mg/dL (80-115); Potassium 3.5 mmol/L (3.5-5.1); Sodium 135 mmol/L (136-145)
[2023-11-03] MEDS: Budesonide 0.5 MG/2 ML NEB INH SCH ×2 (07:56→18:31)
[2023-11-03] MEDS: Ipratropium/Albuterol 3 ML NEB NEB SCH ×4 (07:57→18:31)
[2023-11-03] MEDS: Sertraline 25 MG TAB PO SCH (08:52)
[2023-11-03] MEDS: Gabapentin 300 MG CAP PO SCH ×3 (08:52→22:34)
[2023-11-03] MEDS: Apixaban 5 MG TAB PO SCH ×2 (08:52→22:34)
[2023-11-03] MEDS: predniSONE 20 MG TAB PO SCH (08:52)
[2023-11-03] MEDS: Alogliptin 25 MG TAB PO SCH (08:52)
[2023-11-03] MEDS: Famotidine 20 MG TAB PO SCH ×2 (08:52→22:34)
[2023-11-03] MEDS: Cefepime 2 GM in Sodium Chloride 0.9% 100 ML IVPB SCH ×2 (08:53→22:35)
[2023-11-03] MEDS: Amiodarone 200 MG TAB PO SCH ×2 (08:53→19:15)
[2023-11-03] MEDS: glipiZIDE 5 MG TAB PO SCH (08:53)
[2023-11-03] MEDS: ALPRAZolam 0.25 MG TAB PO PRN ×3 (08:56→19:20)
[2023-11-03 11:24] LABS: Vancomycin, Trough 13.5 ug/mL
[2023-11-03] MEDS ORDERED: Vancomycin (BATCH) 1.5 GM in Premix 1 BAG IVPB SCH (12:00)
[2023-11-03] MEDS: dilTIAZem 125 MG in Sodium Chloride 0.9% 100 ML IVPB SCH (19:15)
[2023-11-03 20:27] LABS: Actual Bicarbonate (HCO3a) 23.1 mEq/L (22-28); Analyzer IN Cardio OR; Base Excess (BEa) -0.8 mEq/L (-2.0 to +3.0); CO2 Tension 35.4 mmHg (35.0-45.0); Calcium, Ionized (arterial) 1.13 mmol/L (1.12-1.30); Carboxyhemoglobin (COHb) 1.2 gm% (0.0-3.0); Hematocrit-ABG 33 % (42.0-52.0); Hemoglobin (Hb) 11.3 g/dL (14.0-18.0); Potassium - ABG Lab 3.85 mmol/L (3.70-5.30); pH, Arterial 7.432 (7.35-7.45)
[2023-11-03 20:28] LABS: O2 Tension (PaO2), arterial 53.7 mmHg (> 80.0); Puncture Site RRA
[2023-11-03] MEDS ORDERED: Furosemide 40 MG (4 mL) VIAL SLOW IVP SCH (20:30)
[2023-11-03] MEDS ORDERED: dilTIAZem 125 MG in Sodium Chloride 0.9% 100 ML IVPB SCH (22:30)
[2023-11-03] MEDS: Doxycycline 100 MG in Sodium Chloride 0.9% 100 ML IVPB SCH (22:35)
[2023-11-03] MEDS ORDERED: dilTIAZem 125 MG, Admixture Fee 1 EACH in Sodium Chloride 0.9% 100 ML IVPB SCH (23:00)
[2023-11-03 23:16] LABS: #Monocytes 0.5 thou/uL (0.11-0.59); #Neutrophils 8.6 thou/uL (1.40-6.50); %Basophils 0.1 % (0.0-1.0); %Eosinophils 0.1 % (0.0-10.0); %Lymphocytes 1.1 % (21.0-51.0); %Monocytes 5.1 % (0.0-10.0); %Neutrophils 91.7 % (42.0-75.0); Hematocrit 31.4 % (42.0-52.0); Hemoglobin 10.6 g/dL (14.0-18.0); Mean Corpuscular HGB CONC 33.8 g/dL (32.0-36.0); Mean Corpuscular Hemoglobin 31.1 pg (27.0-31.0); Mean Corpuscular Volume 92.1 fl (78.0-98.0); Mean Platelet Volume 9.4 fL (7.4-10.4); Platelet Count 97 10x3/uL (130-400); RBC Distribution Width 16.9 % (11.5-14.5); Red Blood Cell (RBC) Count 3.41 mill/uL (4.70-6.10); White Blood Cell (WBC) Count 9.4 10x3/uL (4.8-10.8)
[2023-11-03 23:35] LABS: Lactic Acid 2.5 mmol/L (0.5-2.2)
[2023-11-03 23:40] LABS: Bacteria/HPF None Seen HPF (None Seen); Bilirubin Negative (Negative); Blood, Urine Negative (Negative); Clarity Clear (Clear); Glucose, Urine (Dipstick) 50 mg/dL (Negative); Ketone, Urine Negative (Negative); Leukocyte Negative Leu/uL (Negative); Nitrite Negative (Negative); Protein, Urine (Dipstick) Negative (Neg-Trace); RBC/HPF None Seen HPF (0-3); Squamous Epithelial None Seen HPF (0-3); Urobilinogen Normal mg/dL (Less than 2); WBC/HPF 0-3 HPF (0-3)
[2023-11-03 23:41] LABS: ALT (SGPT) 24 U/L (8-55); AST (SGOT) 15 U/L (5-34); Albumin 3.3 g/dL (3.4-4.8); Alkaline Phosphatase 107 U/L (40-110); Anion Gap 14 mmol/L (10-20); BUN (Urea Nitrogen) 9 mg/dL (8.4-25.7); Bilirubin, Total 0.4 mg/dL (0.2-1.2); Calc. Creatinine Clearance 129 mL/min (70-130); Calcium 8.3 mg/dL (7.8-10.44); Carbon Dioxide 23 mmol/L (23-31); Chloride 101 mmol/L (98-107); Estimated GFR 103; Globulin 2.3 g/dL (2.4-3.5); Glucose 193 mg/dL (80-115); Potassium 3.6 mmol/L (3.5-5.1); Protein, Total 5.6 g/dL (5.8-8.1); Sodium 134 mmol/L (136-145)
[2023-11-04 04:30] LABS: #Monocytes 0.4 thou/uL (0.11-0.59); %Basophils 0.1 % (0.0-1.0); %Eosinophils 0.4 % (0.0-10.0); %Lymphocytes 1.6 % (21.0-51.0); %Monocytes 5.3 % (0.0-10.0); %Neutrophils 90.5 % (42.0-75.0); Hemoglobin 10.1 g/dL (14.0-18.0); Mean Corpuscular HGB CONC 33.7 g/dL (32.0-36.0); Mean Corpuscular Hemoglobin 31.2 pg (27.0-31.0); Mean Corpuscular Volume 92.6 fl (78.0-98.0); Mean Platelet Volume 9.4 fL (7.4-10.4); RBC Distribution Width 16.8 % (11.5-14.5); Red Blood Cell (RBC) Count 3.24 mill/uL (4.70-6.10); White Blood Cell (WBC) Count 7.7 10x3/uL (4.8-10.8)
[2023-11-04 04:33] LABS: Platelet Count 88 10x3/uL (130-400)
[2023-11-04 04:53] LABS: Anion Gap 13 mmol/L (10-20); BUN (Urea Nitrogen) 10 mg/dL (8.4-25.7); Calc. Creatinine Clearance 127 mL/min (70-130); Calcium 8.2 mg/dL (7.8-10.44); Carbon Dioxide 29 mmol/L (23-31); Chloride 100 mmol/L (98-107); Estimated GFR 103; Glucose 70 mg/dL (80-115); Potassium 3.8 mmol/L (3.5-5.1); Sodium 138 mmol/L (136-145)
[2023-11-04] MEDS: Ipratropium/Albuterol 3 ML NEB NEB SCH ×4 (08:30→18:50)
[2023-11-04] MEDS: Budesonide 0.5 MG/2 ML NEB INH SCH ×2 (08:30→18:53)
[2023-11-04] MEDS: Famotidine 20 MG TAB PO SCH ×2 (08:45→21:02)
[2023-11-04] MEDS: predniSONE 20 MG TAB PO SCH (08:45)
[2023-11-04] MEDS: Apixaban 5 MG TAB PO SCH ×2 (08:45→21:02)
[2023-11-04] MEDS: Amiodarone 200 MG TAB PO SCH ×3 (08:45→21:02)
[2023-11-04] MEDS: Sertraline 25 MG TAB PO SCH (08:45)
[2023-11-04] MEDS: Gabapentin 300 MG CAP PO SCH ×3 (08:46→21:03)
[2023-11-04] MEDS: Alogliptin 25 MG TAB PO SCH (08:46)
[2023-11-04] MEDS: Cefepime 2 GM in Sodium Chloride 0.9% 100 ML IVPB SCH ×2 (08:46→16:57)
[2023-11-04] MEDS: ALPRAZolam 0.25 MG TAB PO PRN ×2 (08:48→20:02)
[2023-11-04] MEDS: Doxycycline 100 MG in Sodium Chloride 0.9% 100 ML IVPB SCH ×2 (10:51→21:05)
[2023-11-04] MEDS: HumaLOG 300 UNITS/3 ML VIAL SC PRN (15:54)
[2023-11-04] MEDS ORDERED: Ipratropium/Albuterol 3 ML NEB NEB PRN (19:16)
[2023-11-05] MEDS: Cefepime 2 GM in Sodium Chloride 0.9% 100 ML IVPB SCH ×3 (01:32→15:50)
[2023-11-05 04:06] LABS: #Eosinphils 0.1 thou/uL (0.0-0.7); #Monocytes 0.3 thou/uL (0.11-0.59); #Neutrophils 6.6 thou/uL (1.40-6.50); %Basophils 0.1 % (0.0-1.0); %Lymphocytes 1.8 % (21.0-51.0); %Monocytes 3.6 % (0.0-10.0); %Neutrophils 92.1 % (42.0-75.0); Hematocrit 29.6 % (42.0-52.0); Hemoglobin 10.1 g/dL (14.0-18.0); Mean Corpuscular HGB CONC 34.1 g/dL (32.0-36.0); Mean Corpuscular Hemoglobin 31.2 pg (27.0-31.0); Mean Corpuscular Volume 91.4 fl (78.0-98.0); Mean Platelet Volume 9.4 fL (7.4-10.4); Platelet Count 76 10x3/uL (130-400); RBC Distribution Width 16.8 % (11.5-14.5); Red Blood Cell (RBC) Count 3.24 mill/uL (4.70-6.10); White Blood Cell (WBC) Count 7.1 10x3/uL (4.8-10.8)
[2023-11-05 04:29] LABS: Anion Gap 13 mmol/L (10-20); BUN (Urea Nitrogen) 14 mg/dL (8.4-25.7); Calc. Creatinine Clearance 143 mL/min (70-130); Calcium 8.6 mg/dL (7.8-10.44); Carbon Dioxide 25 mmol/L (23-31); Chloride 99 mmol/L (98-107); Estimated GFR 106; Glucose 135 mg/dL (80-115); Potassium 3.9 mmol/L (3.5-5.1); Sodium 133 mmol/L (136-145)
[2023-11-05] MEDS: HumaLOG 300 UNITS/3 ML VIAL SC PRN ×4 (06:44→20:14)
[2023-11-05] MEDS: Ipratropium/Albuterol 3 ML NEB NEB SCH ×4 (06:54→19:46)
[2023-11-05] MEDS: Budesonide 0.5 MG/2 ML NEB INH SCH ×2 (06:55→19:46)
[2023-11-05] MEDS: Doxycycline 100 MG in Sodium Chloride 0.9% 100 ML IVPB SCH ×2 (09:15→20:12)
[2023-11-05] MEDS: ALPRAZolam 0.25 MG TAB PO PRN ×2 (09:15→17:49)
[2023-11-05] MEDS: Famotidine 20 MG TAB PO SCH ×2 (09:15→20:13)
[2023-11-05] MEDS: Amiodarone 200 MG TAB PO SCH (09:15)
[2023-11-05] MEDS: predniSONE 20 MG TAB PO SCH (09:15)
[2023-11-05] MEDS: Alogliptin 25 MG TAB PO SCH (09:15)
[2023-11-05] MEDS: Sertraline 25 MG TAB PO SCH (09:15)
[2023-11-05] MEDS: Apixaban 5 MG TAB PO SCH ×2 (09:15→20:12)
[2023-11-05] MEDS: Gabapentin 300 MG CAP PO SCH ×3 (09:15→20:13)
[2023-11-05] MEDS ORDERED: Digoxin 0.5 MG/2 ML AMP SLOW IVP SCH ×2 (20:00→22:30)
[2023-11-06] MEDS: Cefepime 2 GM in Sodium Chloride 0.9% 100 ML IVPB SCH ×3 (00:19→18:07)
[2023-11-06 04:43] LABS: #Eosinphils 0.1 thou/uL (0.0-0.7); #Monocytes 0.3 thou/uL (0.11-0.59); #Neutrophils 6.3 thou/uL (1.40-6.50); %Eosinophils 0.7 % (0.0-10.0); %Monocytes 4.5 % (0.0-10.0); %Neutrophils 91.1 % (42.0-75.0); Hematocrit 31.8 % (42.0-52.0); Hemoglobin 10.7 g/dL (14.0-18.0); Mean Corpuscular HGB CONC 33.6 g/dL (32.0-36.0); Mean Corpuscular Volume 92.2 fl (78.0-98.0); Mean Platelet Volume 9.6 fL (7.4-10.4); RBC Distribution Width 16.8 % (11.5-14.5); Red Blood Cell (RBC) Count 3.45 mill/uL (4.70-6.10)
[2023-11-06 04:47] LABS: Platelet Count 62 10x3/uL (130-400)
[2023-11-06 05:05] LABS: Anion Gap 12 mmol/L (10-20); BUN (Urea Nitrogen) 15 mg/dL (8.4-25.7); Calc. Creatinine Clearance 141 mL/min (70-130); Calcium 8.6 mg/dL (7.8-10.44); Carbon Dioxide 27 mmol/L (23-31); Chloride 100 mmol/L (98-107); Estimated GFR 106; Glucose 127 mg/dL (80-115); Potassium 3.7 mmol/L (3.5-5.1); Sodium 135 mmol/L (136-145)
[2023-11-06] MEDS: Alogliptin 25 MG TAB PO SCH (07:48)
[2023-11-06] MEDS: predniSONE 20 MG TAB PO SCH (07:48)
[2023-11-06] MEDS: Apixaban 5 MG TAB PO SCH ×2 (07:49→20:50)
[2023-11-06] MEDS: Doxycycline 100 MG in Sodium Chloride 0.9% 100 ML IVPB SCH ×2 (07:49→20:49)
[2023-11-06] MEDS: Famotidine 20 MG TAB PO SCH ×2 (07:49→20:50)
[2023-11-06] MEDS: Gabapentin 300 MG CAP PO SCH ×3 (07:49→20:50)
[2023-11-06] MEDS: Sertraline 25 MG TAB PO SCH (07:50)
[2023-11-06] MEDS: Ipratropium/Albuterol 3 ML NEB NEB SCH ×4 (07:53→20:47)
[2023-11-06] MEDS: Budesonide 0.5 MG/2 ML NEB INH SCH ×2 (07:54→20:48)
[2023-11-06] MEDS: ALPRAZolam 0.25 MG TAB PO PRN ×3 (10:03→20:50)
[2023-11-06] MEDS ORDERED: Furosemide 40 MG (4 mL) VIAL SLOW IVP SCH (12:45)
[2023-11-06] MEDS: dilTIAZem 30 MG TAB PO SCH ×3 (14:16→20:50)
[2023-11-06] MEDS: HumaLOG 300 UNITS/3 ML VIAL SC PRN ×2 (18:07→20:50)
[2023-11-07] MEDS: Cefepime 2 GM in Sodium Chloride 0.9% 100 ML IVPB SCH ×3 (00:24→17:47)
[2023-11-07 04:31] LABS: #Eosinphils 0.1 thou/uL (0.0-0.7); #Monocytes 0.4 thou/uL (0.11-0.59); #Neutrophils 5.4 thou/uL (1.40-6.50); %Basophils 0.2 % (0.0-1.0); %Eosinophils 1.9 % (0.0-10.0); %Lymphocytes 3.5 % (21.0-51.0); %Monocytes 6.2 % (0.0-10.0); Hematocrit 32.3 % (42.0-52.0); Hemoglobin 10.9 g/dL (14.0-18.0); Mean Corpuscular HGB CONC 33.7 g/dL (32.0-36.0); Mean Corpuscular Hemoglobin 30.9 pg (27.0-31.0); Mean Corpuscular Volume 91.5 fl (78.0-98.0); Mean Platelet Volume 9.9 fL (7.4-10.4); Red Blood Cell (RBC) Count 3.53 mill/uL (4.70-6.10); White Blood Cell (WBC) Count 6.3 10x3/uL (4.8-10.8)
[2023-11-07 04:54] LABS: Anion Gap 13 mmol/L (10-20); BUN (Urea Nitrogen) 17 mg/dL (8.4-25.7); Calc. Creatinine Clearance 143 mL/min (70-130); Calcium 8.6 mg/dL (7.8-10.44); Carbon Dioxide 26 mmol/L (23-31); Chloride 99 mmol/L (98-107); Estimated GFR 107; Glucose 89 mg/dL (80-115); Potassium 3.8 mmol/L (3.5-5.1); Sodium 134 mmol/L (136-145)
[2023-11-07 05:47] LABS: Platelet Count 50 10x3/uL (130-400)
[2023-11-07] MEDS: Budesonide 0.5 MG/2 ML NEB INH SCH ×2 (06:45→18:41)
[2023-11-07] MEDS: Ipratropium/Albuterol 3 ML NEB NEB SCH ×4 (06:45→18:39)
[2023-11-07] MEDS: predniSONE 20 MG TAB PO SCH (08:50)
[2023-11-07] MEDS: Alogliptin 25 MG TAB PO SCH (08:50)
[2023-11-07] MEDS: Famotidine 20 MG TAB PO SCH ×2 (08:51→20:20)
[2023-11-07] MEDS: Digoxin 0.25 MG TAB PO SCH (08:51)
[2023-11-07] MEDS: dilTIAZem 30 MG TAB PO SCH ×4 (08:51→20:30)
[2023-11-07] MEDS: Apixaban 5 MG TAB PO SCH (08:51)
[2023-11-07] MEDS: Doxycycline 100 MG in Sodium Chloride 0.9% 100 ML IVPB SCH ×2 (08:51→20:20)
[2023-11-07] MEDS: Gabapentin 300 MG CAP PO SCH ×3 (08:51→20:19)
[2023-11-07] MEDS: Sertraline 25 MG TAB PO SCH (08:52)
[2023-11-07] MEDS: HumaLOG 300 UNITS/3 ML VIAL SC PRN ×2 (13:13→17:47)
[2023-11-07] MEDS: ALPRAZolam 0.25 MG TAB PO PRN ×2 (17:52→20:19)
[2023-11-08] MEDS: Cefepime 2 GM in Sodium Chloride 0.9% 100 ML IVPB SCH ×3 (01:05→16:49)
[2023-11-08] MEDS: Budesonide 0.5 MG/2 ML NEB INH SCH ×2 (07:43→19:30)
[2023-11-08] MEDS: dilTIAZem 30 MG TAB PO SCH ×4 (07:49→21:06)
[2023-11-08] MEDS: Ipratropium/Albuterol 3 ML NEB NEB SCH ×4 (07:49→19:29)
[2023-11-08] MEDS: Gabapentin 300 MG CAP PO SCH ×3 (07:49→21:06)
[2023-11-08] MEDS: Alogliptin 25 MG TAB PO SCH (07:49)
[2023-11-08] MEDS: Digoxin 0.25 MG TAB PO SCH (07:49)
[2023-11-08] MEDS: Doxycycline 100 MG in Sodium Chloride 0.9% 100 ML IVPB SCH ×2 (07:50→21:05)
[2023-11-08] MEDS: Famotidine 20 MG TAB PO SCH ×2 (07:50→21:06)
[2023-11-08] MEDS: predniSONE 20 MG TAB PO SCH (07:50)
[2023-11-08] MEDS: Sertraline 25 MG TAB PO SCH (07:50)
[2023-11-08] MEDS: ALPRAZolam 0.25 MG TAB PO PRN ×2 (11:07→21:06)
[2023-11-08] MEDS: HumaLOG 300 UNITS/3 ML VIAL SC PRN ×2 (11:45→17:11)
[2023-11-08 17:24] LABS: INR-International Normal Ratio 1.1; PTT 24.7 sec (22.9-36.1)
[2023-11-08 17:31] LABS: D-Dimer Test 6.82 *mcg/mL (0.27-0.43)
[2023-11-09] MEDS: Cefepime 2 GM in Sodium Chloride 0.9% 100 ML IVPB SCH ×3 (00:27→16:46)
[2023-11-09] MEDS: dilTIAZem 30 MG TAB PO SCH ×4 (05:58→20:27)
[2023-11-09] MEDS: Budesonide 0.5 MG/2 ML NEB INH SCH ×2 (07:24→18:34)
[2023-11-09] MEDS: Ipratropium/Albuterol 3 ML NEB NEB SCH ×4 (07:26→18:33)
[2023-11-09] MEDS: predniSONE 20 MG TAB PO SCH (08:16)
[2023-11-09] MEDS: Alogliptin 25 MG TAB PO SCH (08:16)
[2023-11-09] MEDS: Digoxin 0.25 MG TAB PO SCH (08:16)
[2023-11-09] MEDS: Famotidine 20 MG TAB PO SCH ×2 (08:17→20:27)
[2023-11-09] MEDS: Gabapentin 300 MG CAP PO SCH ×3 (08:17→20:27)
[2023-11-09] MEDS: Doxycycline 100 MG in Sodium Chloride 0.9% 100 ML IVPB SCH (08:17)
[2023-11-09] MEDS: Sertraline 25 MG TAB PO SCH (08:17)
[2023-11-09 09:35] LABS: Hematocrit 31.5 % (42.0-52.0); Hemoglobin 10.5 g/dL (14.0-18.0); Manual Diff?? YES; Mean Corpuscular HGB CONC 33.3 g/dL (32.0-36.0); Mean Corpuscular Hemoglobin 31.2 pg (27.0-31.0); Mean Corpuscular Volume 93.5 fl (78.0-98.0); Mean Platelet Volume 11.1 fL (7.4-10.4); RBC Distribution Width 17.2 % (11.5-14.5); Red Blood Cell (RBC) Count 3.37 mill/uL (4.70-6.10); White Blood Cell (WBC) Count 4.3 10x3/uL (4.8-10.8)
[2023-11-09 09:37] LABS: Platelet Count 31 10x3/uL (130-400)
[2023-11-09 09:39] LABS: Delete Auto Diff?? YES
[2023-11-09 09:56] LABS: ALT (SGPT) 24 U/L (8-55); AST (SGOT) 13 U/L (5-34); Alkaline Phosphatase 116 U/L (40-110); Anion Gap 11 mmol/L (10-20); BUN (Urea Nitrogen) 13 mg/dL (8.4-25.7); Bilirubin, Total 0.7 mg/dL (0.2-1.2); Calc. Creatinine Clearance 128 mL/min (70-130); Calcium 8.3 mg/dL (7.8-10.44); Carbon Dioxide 28 mmol/L (23-31); Chloride 99 mmol/L (98-107); Estimated GFR 104; Glucose 173 mg/dL (80-115); Potassium 4.1 mmol/L (3.5-5.1); Sodium 134 mmol/L (136-145)
[2023-11-09 10:03] LABS: Band 5 % (5-11); CellaVision Operator ID LAB.CMB; Eosinophils 2 % (0-10); Large Platelets 0.9 % (0-5); Lymphocytes 2 % (21-51); Macrocytosis SLIGHT = 6-15 cells HPF (0-5); Monocytes 5 % (0-10); Neutrophil 87 % (42-75); Platelet Adequacy Comment Significant decrease; Polychromasia SLIGHT = 2-3 cells HPF (0-2); RBC Morphology Within Normal Limits; Total Cell Count 107
[2023-11-09] MEDS: HumaLOG 300 UNITS/3 ML VIAL SC PRN ×3 (13:55→21:38)
[2023-11-09] MEDS: ALPRAZolam 0.25 MG TAB PO PRN ×2 (16:49→21:38)
[2023-11-10] MEDS: Cefepime 2 GM in Sodium Chloride 0.9% 100 ML IVPB SCH ×3 (01:09→20:50)
[2023-11-10 05:23] LABS: Hematocrit 29.3 % (42.0-52.0); Hemoglobin 9.9 g/dL (14.0-18.0); Manual Diff?? YES; Mean Corpuscular HGB CONC 33.8 g/dL (32.0-36.0); Mean Corpuscular Hemoglobin 31.3 pg (27.0-31.0); Mean Corpuscular Volume 92.7 fl (78.0-98.0); Mean Platelet Volume 10.1 fL (7.4-10.4); RBC Distribution Width 16.7 % (11.5-14.5); Red Blood Cell (RBC) Count 3.16 mill/uL (4.70-6.10); White Blood Cell (WBC) Count 4.8 10x3/uL (4.8-10.8)
[2023-11-10 05:31] LABS: Delete Auto Diff?? YES; Platelet Count 46 10x3/uL (130-400)
[2023-11-10 05:44] LABS: Anion Gap 13 mmol/L (10-20); BUN (Urea Nitrogen) 13 mg/dL (8.4-25.7); Calc. Creatinine Clearance 133 mL/min (70-130); Calcium 8.7 mg/dL (7.8-10.44); Carbon Dioxide 29 mmol/L (23-31); Chloride 100 mmol/L (98-107); Estimated GFR 105; Glucose 105 mg/dL (80-115); Potassium 4.2 mmol/L (3.5-5.1); Sodium 138 mmol/L (136-145)
[2023-11-10 06:17] LABS: Anisocytosis SLIGHT = 6-15 cells HPF (0-5); Band 4 % (5-11); CellaVision Operator ID lab.abc; Eosinophils 3 % (0-10); Lymphocytes 2 % (21-51); Neutrophil 91 % (42-75); Platelet Adequacy Comment Platelets Decreased; Polychromasia SLIGHT = 2-3 cells HPF (0-2); Total Cell Count 102
[2023-11-10] MEDS: Ipratropium/Albuterol 3 ML NEB NEB SCH (06:53)
[2023-11-10] MEDS: Budesonide 0.5 MG/2 ML NEB INH SCH ×2 (06:54→19:04)
[2023-11-10] MEDS: predniSONE 20 MG TAB PO SCH (08:14)
[2023-11-10] MEDS: Alogliptin 25 MG TAB PO SCH (08:15)
[2023-11-10] MEDS: Famotidine 20 MG TAB PO SCH ×2 (08:15→20:39)
[2023-11-10] MEDS: dilTIAZem 30 MG TAB PO SCH ×3 (08:15→20:39)
[2023-11-10] MEDS: Gabapentin 300 MG CAP PO SCH ×3 (08:15→20:39)
[2023-11-10] MEDS: Sertraline 25 MG TAB PO SCH (08:15)
[2023-11-10] MEDS: Digoxin 0.25 MG TAB PO SCH (08:15)
[2023-11-10] MEDS ORDERED: CEFAZOLIN 2 GM VIAL ONE (13:14)
[2023-11-10] MEDS ORDERED: Gentamicin 80 MG/2 ML VIAL ONE (13:14)
[2023-11-10] MEDS ORDERED: DOPamine 400 MG/D5W 250 ML 250 ML ONE (13:14)
[2023-11-10] MEDS ORDERED: Lidocaine 1% (PF) 30 ML VIAL ONE (13:14)
[2023-11-10] MEDS ORDERED: Heparin 10,000 UNITS/ 10 ML VIAL ONE (13:27)
[2023-11-10 14:45] LABS: Hematocrit 31.4 % (42.0-52.0); Hemoglobin 10.7 g/dL (14.0-18.0)
[2023-11-10 14:49] LABS: Platelet Count 66 10x3/uL (130-400)
[2023-11-10] MEDS ORDERED: Ketamine In 0.9 % NaCl 50 MG/5 ML SYRINGE ONE (15:21)
[2023-11-10] MEDS ORDERED: Midazolam HCl 2 mg/2 ml Vial ONE (15:53)
[2023-11-10] MEDS ORDERED: fentaNYL 50 mcg/mL 1 mL Vial ONE (15:54)
[2023-11-10] MEDS ORDERED: PROPOFOL 200 MG/20 ML VIAL ONE (15:55)
[2023-11-10] MEDS ORDERED: PHENYLEPHRINE-NS 100 MCG/ML 10 ML SYRINGE ONE (15:55)
[2023-11-10] MEDS ORDERED: Succinylcholine 200 MG/10 ml SYRINGE FS ONE (15:55)
[2023-11-10] MEDS ORDERED: Vecuronium 10 MG VIAL ONE (15:55)
[2023-11-10] MEDS ORDERED: Lidocaine 1% PF 5 ML VIAL ONE (15:55)
[2023-11-10] MEDS ORDERED: Rocuronium Bromide 10 MG/ML (10ML VIAL) ONE (15:55)
[2023-11-10] MEDS ORDERED: Phenylephrine 40 MG/NS 250 ML 250 ML ONE (17:05)
[2023-11-10] MEDS ORDERED: Phenylephrine 10 MG/ML VIAL ONE (17:09)
[2023-11-10] MEDS ORDERED: Vasopressin 20 UNITS/ML VIAL ONE (17:10)
[2023-11-10] MEDS ORDERED: Acetaminophen/Codeine 30-300mg Tablet PO PRN (18:11)
[2023-11-10] MEDS ORDERED: Propofol 1,000 MG/100 ML VIAL IV ONE (18:53)
[2023-11-10 19:58] LABS: Actual Bicarbonate (HCO3a) 26.5 mEq/L (22-28); Base Excess (BEa) -1.9 mEq/L (-2.0 to +3.0); Calcium, Ionized (arterial) 1.17 mmol/L (1.12-1.30); Carboxyhemoglobin (COHb) 1.7 gm% (0.0-3.0); Hematocrit-ABG 34 % (42.0-52.0); Hemoglobin (Hb) 11.5 g/dL (14.0-18.0); O2 Tension (PaO2), arterial 76.5 mmHg (> 80.0); Potassium - ABG Lab 5.46 mmol/L (3.70-5.30); pH, Arterial 7.233 (7.35-7.45)
[2023-11-10] MEDS ORDERED: Propofol 1,000 MG/100 ML VIAL IV PRN (20:00)
[2023-11-10] MEDS ORDERED: Lorazepam 2 MG/ML VIAL SLOW IVP PRN (20:00)
[2023-11-10] MEDS ORDERED: Propofol BOLUS 1,000 MG/100 ML VIAL IV PRN (20:00)
[2023-11-10] MEDS ORDERED: Morphine 2 MG/ML VIAL SLOW IVP PRN (20:00)
[2023-11-10] MEDS ORDERED: Fentanyl BOLUS 250 ML IVPB PRN (20:00)
[2023-11-10] MEDS ORDERED: DISCONTINUE PREVIOUS NARCOTIC PAIN MEDICATIONS AND BENZODIAZEPINES FS SCH (20:00)
[2023-11-10] MEDS ORDERED: Fentanyl CADD 100 ML IV SCH (20:00)
[2023-11-10] MEDS: Cephalexin 250 MG CAP PO SCH (20:39)
[2023-11-10 20:42] LABS: CO2 Tension 64.4 mmHg (35.0-45.0)
[2023-11-10 20:43] LABS: Puncture Site RBA
[2023-11-10] MEDS ORDERED: Cephalexin 250 MG CAP PO SCH (21:00)
[2023-11-10] MEDS: HumaLOG 300 UNITS/3 ML VIAL SC PRN (21:13)
[2023-11-11 00:54] LABS: Actual Bicarbonate (HCO3a) 27.2 mEq/L (22-28); Base Excess (BEa) 2.6 mEq/L (-2.0 to +3.0); CO2 Tension 42.3 mmHg (35.0-45.0); Calcium, Ionized (arterial) 1.13 mmol/L (1.12-1.30); Carboxyhemoglobin (COHb) 1.4 gm% (0.0-3.0); Hematocrit-ABG 29 % (42.0-52.0); Hemoglobin (Hb) 9.9 g/dL (14.0-18.0); O2 Tension (PaO2), arterial 120.5 mmHg (> 80.0); Potassium - ABG Lab 4.56 mmol/L (3.70-5.30); pH, Arterial 7.426 (7.35-7.45)
[2023-11-11 00:57] LABS: ALV-art Gradient 254.425 mmHg (0-20); Puncture Site RBA
[2023-11-11] MEDS: Cefepime 2 GM in Sodium Chloride 0.9% 100 ML IVPB SCH ×3 (03:53→16:57)
[2023-11-11 04:55] LABS: #Monocytes 0.4 thou/uL (0.11-0.59); #Neutrophils 4.5 thou/uL (1.40-6.50); %Basophils 0.2 % (0.0-1.0); %Eosinophils 0.4 % (0.0-10.0); %Lymphocytes 2.3 % (21.0-51.0); %Monocytes 8.1 % (0.0-10.0); %Neutrophils 84.5 % (42.0-75.0); Hematocrit 30.1 % (42.0-52.0); Hemoglobin 9.7 g/dL (14.0-18.0); Mean Corpuscular HGB CONC 32.2 g/dL (32.0-36.0); Mean Corpuscular Hemoglobin 30.9 pg (27.0-31.0); Mean Platelet Volume 10.5 fL (7.4-10.4); RBC Distribution Width 17.2 % (11.5-14.5); Red Blood Cell (RBC) Count 3.14 mill/uL (4.70-6.10); White Blood Cell (WBC) Count 5.3 10x3/uL (4.8-10.8)
[2023-11-11 05:22] LABS: Anion Gap 14 mmol/L (10-20); BUN (Urea Nitrogen) 19 mg/dL (8.4-25.7); Calc. Creatinine Clearance 125 mL/min (70-130); Calcium 8.4 mg/dL (7.8-10.44); Carbon Dioxide 24 mmol/L (23-31); Chloride 99 mmol/L (98-107); Estimated GFR 102; Glucose 176 mg/dL (80-115); Potassium 4.4 mmol/L (3.5-5.1); Sodium 133 mmol/L (136-145)
[2023-11-11 06:14] LABS: Platelet Count 63 10x3/uL (130-400)
[2023-11-11] MEDS: Budesonide 0.5 MG/2 ML NEB INH SCH ×2 (06:53→19:13)
[2023-11-11 07:58] LABS: Mean Corpuscular Volume 95.9 fl (78.0-98.0)
[2023-11-11] MEDS: Cephalexin 250 MG CAP PO SCH (10:08)
[2023-11-11] MEDS: predniSONE 20 MG TAB PO SCH (10:25)
[2023-11-11] MEDS: Alogliptin 25 MG TAB PO SCH (10:41)
[2023-11-11] MEDS: Sertraline 25 MG TAB PO SCH (10:42)
[2023-11-11] MEDS: Gabapentin 300 MG CAP PO SCH ×3 (10:42→21:25)
[2023-11-11] MEDS: Famotidine 20 MG TAB PO SCH (11:03)
[2023-11-11] MEDS ORDERED: Iopamidol-370 76% 500 ML MDV (1 ML CHARGE) ONE (11:04)
[2023-11-11] MEDS: ALPRAZolam 0.25 MG TAB PO PRN ×2 (13:13→21:25)
[2023-11-11] MEDS: HumaLOG 300 UNITS/3 ML VIAL SC PRN (17:01)
[2023-11-12] MEDS: Cefepime 2 GM in Sodium Chloride 0.9% 100 ML IVPB SCH ×3 (00:42→17:36)
[2023-11-12] MEDS: ALPRAZolam 0.25 MG TAB PO PRN ×2 (05:44→11:22)
[2023-11-12] MEDS: Budesonide 0.5 MG/2 ML NEB INH SCH ×2 (07:09→19:02)
[2023-11-12] MEDS ORDERED: Dexmedetomidine In 0.9 % NaCl 100 ML IVPB SCH (09:00)
[2023-11-12] MEDS: Gabapentin 300 MG CAP PO SCH ×3 (09:47→21:35)
[2023-11-12] MEDS: methylPREDNISolone Sod Succ 40 MG VIAL IVP SCH ×2 (09:47→17:36)
[2023-11-12] MEDS: Sertraline 25 MG TAB PO SCH (09:47)
[2023-11-12] MEDS: Alogliptin 25 MG TAB PO SCH (09:50)
[2023-11-12] MEDS: Dexmedetomidine 400 MCG, Admixture Fee 1 EACH in Sodium Chloride 0.9% 96 ML IVPB SCH (11:33)
[2023-11-12] MEDS: HumaLOG 300 UNITS/3 ML VIAL SC PRN ×2 (17:37→22:10)
[2023-11-13] MEDS: methylPREDNISolone Sod Succ 40 MG VIAL IVP SCH ×3 (00:46→17:48)
[2023-11-13] MEDS: Cefepime 2 GM in Sodium Chloride 0.9% 100 ML IVPB SCH ×3 (00:46→17:39)
[2023-11-13] MEDS: Dexmedetomidine 400 MCG, Admixture Fee 1 EACH in Sodium Chloride 0.9% 96 ML IVPB SCH (00:47)
[2023-11-13] MEDS: Budesonide 0.5 MG/2 ML NEB INH SCH ×2 (06:42→18:05)
[2023-11-13] MEDS: Gabapentin 300 MG CAP PO SCH ×3 (09:56→20:24)
[2023-11-13] MEDS: Alogliptin 25 MG TAB PO SCH (09:57)
[2023-11-13] MEDS: Sertraline 25 MG TAB PO SCH (09:57)
[2023-11-13] MEDS: HumaLOG 300 UNITS/3 ML VIAL SC PRN ×3 (12:26→20:32)
[2023-11-13 12:52] LABS: #Monocytes 0.3 thou/uL (0.11-0.59); #Neutrophils 5.6 thou/uL (1.40-6.50); %Basophils 0.3 % (0.0-1.0); %Lymphocytes 1.8 % (21.0-51.0); %Monocytes 5.4 % (0.0-10.0); %Neutrophils 90.7 % (42.0-75.0); Hematocrit 33.6 % (42.0-52.0); Hemoglobin 11.1 g/dL (14.0-18.0); Mean Corpuscular Hemoglobin 30.7 pg (27.0-31.0); Mean Corpuscular Volume 93.1 fl (78.0-98.0); Mean Platelet Volume 10.1 fL (7.4-10.4); RBC Distribution Width 17.3 % (11.5-14.5); Red Blood Cell (RBC) Count 3.61 mill/uL (4.70-6.10); White Blood Cell (WBC) Count 6.1 10x3/uL (4.8-10.8)
[2023-11-13 12:53] LABS: Platelet Count 70 10x3/uL (130-400)
[2023-11-13] MEDS: Apixaban 5 MG TAB PO SCH (20:23)
[2023-11-14] MEDS: Cefepime 2 GM in Sodium Chloride 0.9% 100 ML IVPB SCH ×3 (00:46→16:28)
[2023-11-14] MEDS: methylPREDNISolone Sod Succ 40 MG VIAL IVP SCH ×3 (00:47→16:28)
[2023-11-14] MEDS: Dexmedetomidine 400 MCG, Admixture Fee 1 EACH in Sodium Chloride 0.9% 96 ML IVPB SCH (00:50)
[2023-11-14] MEDS: HumaLOG 300 UNITS/3 ML VIAL SC PRN ×4 (06:16→20:42)
[2023-11-14] MEDS: Budesonide 0.5 MG/2 ML NEB INH SCH ×2 (07:11→19:40)
[2023-11-14] MEDS: Gabapentin 300 MG CAP PO SCH ×3 (09:37→20:17)
[2023-11-14] MEDS: Apixaban 5 MG TAB PO SCH ×2 (09:37→20:17)
[2023-11-14] MEDS: Sertraline 25 MG TAB PO SCH (09:37)
[2023-11-14] MEDS: Insulin Glargine 30 UNITS/0.3 ML VIAL SC SCH (09:40)
[2023-11-14] MEDS: Alogliptin 25 MG TAB PO SCH (09:40)
[2023-11-14] MEDS: ALPRAZolam 0.25 MG TAB PO PRN ×3 (10:17→20:24)
[2023-11-14] MEDS: metFORMIN 500 MG TAB PO SCH (16:28)
[2023-11-15] MEDS: methylPREDNISolone Sod Succ 40 MG VIAL IVP SCH ×3 (01:04→16:31)
[2023-11-15] MEDS: Cefepime 2 GM in Sodium Chloride 0.9% 100 ML IVPB SCH ×3 (01:04→16:32)
[2023-11-15] MEDS: Budesonide 0.5 MG/2 ML NEB INH SCH ×2 (07:10→18:21)
[2023-11-15] MEDS: Gabapentin 300 MG CAP PO SCH ×3 (07:58→20:33)
[2023-11-15] MEDS: Sertraline 25 MG TAB PO SCH (07:59)
[2023-11-15] MEDS: Alogliptin 25 MG TAB PO SCH (07:59)
[2023-11-15] MEDS: ALPRAZolam 0.25 MG TAB PO PRN ×3 (07:59→20:34)
[2023-11-15] MEDS: Apixaban 5 MG TAB PO SCH ×2 (07:59→20:33)
[2023-11-15] MEDS: metFORMIN 500 MG TAB PO SCH ×2 (08:00→16:31)
[2023-11-15] MEDS: Insulin Glargine 30 UNITS/0.3 ML VIAL SC SCH (08:00)
[2023-11-15] MEDS: HumaLOG 300 UNITS/3 ML VIAL SC PRN ×3 (11:54→21:06)
[2023-11-15] MEDS: Dexmedetomidine 400 MCG, Admixture Fee 1 EACH in Sodium Chloride 0.9% 96 ML IVPB SCH (20:14)
[2023-11-16] MEDS: methylPREDNISolone Sod Succ 40 MG VIAL IVP SCH ×3 (00:39→16:35)
[2023-11-16 05:11] LABS: Hematocrit 31.8 % (42.0-52.0); Hemoglobin 10.6 g/dL (14.0-18.0); Manual Diff?? YES; Mean Corpuscular HGB CONC 33.3 g/dL (32.0-36.0); Mean Corpuscular Hemoglobin 31.5 pg (27.0-31.0); Mean Corpuscular Volume 94.6 fl (78.0-98.0); Mean Platelet Volume 10.4 fL (7.4-10.4); RBC Distribution Width 18.4 % (11.5-14.5); Red Blood Cell (RBC) Count 3.36 mill/uL (4.70-6.10); White Blood Cell (WBC) Count 5.8 10x3/uL (4.8-10.8)
[2023-11-16 05:12] LABS: Platelet Count 77 10x3/uL (130-400)
[2023-11-16 05:13] LABS: Delete Auto Diff?? YES
[2023-11-16 05:31] LABS: Anion Gap 15 mmol/L (10-20); BUN (Urea Nitrogen) 20 mg/dL (8.4-25.7); Calc. Creatinine Clearance 126 mL/min (70-130); Calcium 8.7 mg/dL (7.8-10.44); Carbon Dioxide 27 mmol/L (23-31); Chloride 97 mmol/L (98-107); Estimated GFR 103; Glucose 235 mg/dL (80-115); Potassium 4.6 mmol/L (3.5-5.1); Sodium 134 mmol/L (136-145)
[2023-11-16 05:46] LABS: Anisocytosis SLIGHT = 6-15 cells HPF (0-5); Band 4 % (5-11); CellaVision Operator ID lab.sh2; Lymphocytes 2 % (21-51); Macrocytosis SLIGHT = 6-15 cells HPF (0-5); Monocytes 4 % (0-10); Neutrophil 88 % (42-75); Platelet Adequacy Comment Platelets Decreased; Polychromasia MODERATE = 3-4 cells HPF (0-2); Reactive Lymphocytes 3 % (0-10); Tear Drops SLIGHT = 2-5 cells HPF (0-1); Total Cell Count 113
[2023-11-16] MEDS: HumaLOG 300 UNITS/3 ML VIAL SC PRN ×3 (06:27→20:51)
[2023-11-16] MEDS: Budesonide 0.5 MG/2 ML NEB INH SCH ×2 (08:20→18:41)
[2023-11-16] MEDS: Sertraline 25 MG TAB PO SCH (08:25)
[2023-11-16] MEDS: Gabapentin 300 MG CAP PO SCH ×3 (08:25→20:20)
[2023-11-16] MEDS: Alogliptin 25 MG TAB PO SCH (08:26)
[2023-11-16] MEDS: Insulin Glargine 30 UNITS/0.3 ML VIAL SC SCH (08:26)
[2023-11-16] MEDS: Apixaban 5 MG TAB PO SCH ×2 (08:26→20:20)
[2023-11-16] MEDS: Cephalexin 250 MG CAP PO SCH ×4 (08:26→20:20)
[2023-11-16] MEDS: metFORMIN 500 MG TAB PO SCH ×2 (08:26→16:35)
[2023-11-16] MEDS: ALPRAZolam 0.25 MG TAB PO PRN ×3 (08:27→20:20)
[2023-11-16] MEDS ORDERED: ALPRAZolam 0.25 MG TAB PO PRN (15:29)
[2023-11-16] MEDS ORDERED: glipiZIDE 5 MG TAB PO SCH (15:45)
[2023-11-16] MEDS: guaiFENesin ER 600 MG TAB PO SCH (20:20)
[2023-11-16] MEDS: Dexmedetomidine 400 MCG, Admixture Fee 1 EACH in Sodium Chloride 0.9% 96 ML IVPB SCH (20:21)
[2023-11-16] MEDS ORDERED: Gabapentin 300 MG CAP PO SCH (21:00)
[2023-11-16] MEDS ORDERED: metFORMIN 500 MG TAB PO SCH (21:00)
[2023-11-17] MEDS: methylPREDNISolone Sod Succ 40 MG VIAL IVP SCH ×3 (01:25→17:05)
[2023-11-17] MEDS: Budesonide 0.5 MG/2 ML NEB INH SCH ×2 (06:23→19:53)
[2023-11-17] MEDS: glipiZIDE 5 MG TAB PO SCH (08:06)
[2023-11-17] MEDS: Sertraline 25 MG TAB PO SCH (08:06)
[2023-11-17] MEDS: Cephalexin 250 MG CAP PO SCH ×4 (08:07→20:18)
[2023-11-17] MEDS: Insulin Glargine 30 UNITS/0.3 ML VIAL SC SCH ×2 (08:07→21:42)
[2023-11-17] MEDS: Rosuvastatin 20 MG TAB PO SCH (08:07)
[2023-11-17] MEDS: Apixaban 5 MG TAB PO SCH ×2 (08:07→20:18)
[2023-11-17] MEDS: Gabapentin 300 MG CAP PO SCH ×3 (08:07→20:17)
[2023-11-17] MEDS: Alogliptin 25 MG TAB PO SCH (08:07)
[2023-11-17] MEDS: metFORMIN 500 MG TAB PO SCH ×2 (08:08→17:05)
[2023-11-17] MEDS: ALPRAZolam 0.25 MG TAB PO PRN ×3 (08:08→20:17)
[2023-11-17] MEDS: guaiFENesin ER 600 MG TAB PO SCH ×2 (08:10→20:18)
[2023-11-17] MEDS: Acetaminophen/Codeine 30-300mg Tablet PO PRN ×2 (10:29→20:17)
[2023-11-17 10:42] LABS: Anion Gap 17 mmol/L (10-20); BUN (Urea Nitrogen) 21 mg/dL (8.4-25.7); Calc. Creatinine Clearance 127 mL/min (70-130); Calcium 8.7 mg/dL (7.8-10.44); Carbon Dioxide 23 mmol/L (23-31); Chloride 97 mmol/L (98-107); Estimated GFR 103; Glucose 270 mg/dL (80-115); Potassium 5.2 mmol/L (3.5-5.1); Sodium 132 mmol/L (136-145)
[2023-11-17] MEDS: HumaLOG 300 UNITS/3 ML VIAL SC PRN (12:56)
[2023-11-17] MEDS: Ondansetron ODT 4 MG TAB PO PRN (20:17)
[2023-11-18] MEDS: methylPREDNISolone Sod Succ 40 MG VIAL IVP SCH ×2 (04:17→16:20)
[2023-11-18] MEDS: Ondansetron ODT 4 MG TAB PO PRN ×2 (05:30→21:05)
[2023-11-18] MEDS: Budesonide 0.5 MG/2 ML NEB INH SCH ×2 (06:33→18:39)
[2023-11-18] MEDS: Gabapentin 300 MG CAP PO SCH ×3 (08:32→20:27)
[2023-11-18] MEDS: Rosuvastatin 20 MG TAB PO SCH (08:33)
[2023-11-18] MEDS: Sertraline 25 MG TAB PO SCH (08:33)
[2023-11-18] MEDS: ALPRAZolam 0.25 MG TAB PO PRN ×3 (08:33→23:53)
[2023-11-18] MEDS: metFORMIN 500 MG TAB PO SCH ×2 (08:33→16:15)
[2023-11-18] MEDS: glipiZIDE 5 MG TAB PO SCH (08:33)
[2023-11-18] MEDS: Alogliptin 25 MG TAB PO SCH (08:33)
[2023-11-18] MEDS: Insulin Glargine 30 UNITS/0.3 ML VIAL SC SCH ×2 (08:34→22:47)
[2023-11-18] MEDS: guaiFENesin ER 600 MG TAB PO SCH ×2 (08:34→20:27)
[2023-11-18] MEDS: Apixaban 5 MG TAB PO SCH ×2 (08:34→20:27)
[2023-11-18 09:09] LABS: #Monocytes 0.9 thou/uL (0.11-0.59); #Neutrophils 8.6 thou/uL (1.40-6.50); %Basophils 0.2 % (0.0-1.0); %Eosinophils 0.1 % (0.0-10.0); %Lymphocytes 1.2 % (21.0-51.0); %Monocytes 8.6 % (0.0-10.0); %Neutrophils 85.8 % (42.0-75.0); Hematocrit 37.9 % (42.0-52.0); Hemoglobin 12.2 g/dL (14.0-18.0); Mean Corpuscular HGB CONC 32.2 g/dL (32.0-36.0); Mean Corpuscular Hemoglobin 31.2 pg (27.0-31.0); Mean Corpuscular Volume 96.9 fl (78.0-98.0); Mean Platelet Volume 10.5 fL (7.4-10.4); RBC Distribution Width 18.5 % (11.5-14.5); Red Blood Cell (RBC) Count 3.91 mill/uL (4.70-6.10)
[2023-11-18 09:12] LABS: Platelet Count 90 10x3/uL (130-400)
[2023-11-18 09:26] LABS: Anion Gap 15 mmol/L (10-20); BUN (Urea Nitrogen) 21 mg/dL (8.4-25.7); Calc. Creatinine Clearance 137 mL/min (70-130); Calcium 8.6 mg/dL (7.8-10.44); Carbon Dioxide 26 mmol/L (23-31); Chloride 96 mmol/L (98-107); Estimated GFR 106; Glucose 90 mg/dL (80-115); Potassium 4.6 mmol/L (3.5-5.1); Sodium 132 mmol/L (136-145)
[2023-11-19 04:04] LABS: #Monocytes 0.7 thou/uL (0.11-0.59); #Neutrophils 5.6 thou/uL (1.40-6.50); %Basophils 0.3 % (0.0-1.0); %Eosinophils 0.1 % (0.0-10.0); %Lymphocytes 2.6 % (21.0-51.0); %Monocytes 10.7 % (0.0-10.0); %Neutrophils 81.7 % (42.0-75.0); Hematocrit 33.8 % (42.0-52.0); Hemoglobin 11.2 g/dL (14.0-18.0); Mean Corpuscular HGB CONC 33.1 g/dL (32.0-36.0); Mean Corpuscular Hemoglobin 31.5 pg (27.0-31.0); Mean Corpuscular Volume 94.9 fl (78.0-98.0); Mean Platelet Volume 10.1 fL (7.4-10.4); Platelet Count 90 10x3/uL (130-400); RBC Distribution Width 18.1 % (11.5-14.5); Red Blood Cell (RBC) Count 3.56 mill/uL (4.70-6.10); White Blood Cell (WBC) Count 6.9 10x3/uL (4.8-10.8)
[2023-11-19] MEDS: methylPREDNISolone Sod Succ 40 MG VIAL IVP SCH ×2 (04:17→17:56)
[2023-11-19 04:20] LABS: Anion Gap 14 mmol/L (10-20); BUN (Urea Nitrogen) 20 mg/dL (8.4-25.7); Calc. Creatinine Clearance 148 mL/min (70-130); Calcium 8.6 mg/dL (7.8-10.44); Carbon Dioxide 29 mmol/L (23-31); Chloride 94 mmol/L (98-107); Estimated GFR 108; Glucose 78 mg/dL (80-115); Potassium 4.7 mmol/L (3.5-5.1); Sodium 132 mmol/L (136-145)
[2023-11-19] MEDS: Budesonide 0.5 MG/2 ML NEB INH SCH ×2 (07:56→19:10)
[2023-11-19] MEDS: Gabapentin 300 MG CAP PO SCH ×3 (08:48→22:11)
[2023-11-19] MEDS: metFORMIN 500 MG TAB PO SCH ×2 (08:48→17:56)
[2023-11-19] MEDS: Apixaban 5 MG TAB PO SCH ×2 (08:48→22:11)
[2023-11-19] MEDS: glipiZIDE 5 MG TAB PO SCH (08:48)
[2023-11-19] MEDS: Sertraline 25 MG TAB PO SCH (08:48)
[2023-11-19] MEDS: ALPRAZolam 0.25 MG TAB PO PRN ×2 (08:48→17:58)
[2023-11-19] MEDS: Alogliptin 25 MG TAB PO SCH (08:48)
[2023-11-19] MEDS: guaiFENesin ER 600 MG TAB PO SCH ×2 (08:48→22:11)
[2023-11-19] MEDS: Rosuvastatin 20 MG TAB PO SCH (08:48)
[2023-11-19] MEDS: Insulin Glargine 30 UNITS/0.3 ML VIAL SC SCH ×2 (08:49→21:21)
[2023-11-19] MEDS: HumaLOG 300 UNITS/3 ML VIAL SC PRN (13:05)
[2023-11-19] MEDS: Ondansetron ODT 4 MG TAB PO PRN (17:59)
[2023-11-20] MEDS: methylPREDNISolone Sod Succ 40 MG VIAL IVP SCH ×2 (04:39→17:47)
[2023-11-20] MEDS: ALPRAZolam 0.25 MG TAB PO PRN ×2 (06:52→17:49)
[2023-11-20 07:10] LABS: Hematocrit 35.8 % (42.0-52.0); Hemoglobin 11.6 g/dL (14.0-18.0); Manual Diff?? YES; Mean Corpuscular HGB CONC 32.4 g/dL (32.0-36.0); Mean Corpuscular Hemoglobin 30.9 pg (27.0-31.0); Mean Corpuscular Volume 95.5 fl (78.0-98.0); Mean Platelet Volume 9.9 fL (7.4-10.4); RBC Distribution Width 17.8 % (11.5-14.5); Red Blood Cell (RBC) Count 3.75 mill/uL (4.70-6.10); White Blood Cell (WBC) Count 7.6 10x3/uL (4.8-10.8)
[2023-11-20 07:11] LABS: Delete Auto Diff?? YES; Platelet Count 96 10x3/uL (130-400)
[2023-11-20 07:34] LABS: Anion Gap 16 mmol/L (10-20); BUN (Urea Nitrogen) 19 mg/dL (8.4-25.7); Calc. Creatinine Clearance 130 mL/min (70-130); Calcium 8.7 mg/dL (7.8-10.44); Carbon Dioxide 30 mmol/L (23-31); Chloride 90 mmol/L (98-107); Estimated GFR 104; Glucose 108 mg/dL (80-115); Potassium 5.1 mmol/L (3.5-5.1); Sodium 131 mmol/L (136-145)
[2023-11-20 07:38] LABS: Anisocytosis SLIGHT = 6-15 cells (100X) (0-5/hpf); Band 8 % (5-11); Lymphocytes 5 % (21-51); Metamyelocyte 3 % (0-0); Monocytes 9 % (0-10); Myelocyte 3 % (0-0); Neutrophil 70 % (42-75); Polychromasia SLIGHT = 2-3 cells (100X) (0-2/hpf); Reactive Lymphocytes 2 % (0-10)
[2023-11-20 07:39] LABS: Ovalocytes SLIGHT = 2-5 cells (100X) (0-1/hpf); Platelet Adequacy Comment Appears Decreased
[2023-11-20] MEDS: Budesonide 0.5 MG/2 ML NEB INH SCH ×2 (07:40→19:22)
[2023-11-20] MEDS: guaiFENesin ER 600 MG TAB PO SCH ×2 (09:29→20:38)
[2023-11-20] MEDS: Sertraline 25 MG TAB PO SCH (09:29)
[2023-11-20] MEDS: Apixaban 5 MG TAB PO SCH ×2 (09:29→20:38)
[2023-11-20] MEDS: Rosuvastatin 20 MG TAB PO SCH (09:29)
[2023-11-20] MEDS: Gabapentin 300 MG CAP PO SCH ×3 (09:30→20:38)
[2023-11-20] MEDS: metFORMIN 500 MG TAB PO SCH ×2 (09:30→17:46)
[2023-11-20] MEDS: glipiZIDE 5 MG TAB PO SCH (09:30)
[2023-11-20] MEDS: Insulin Glargine 30 UNITS/0.3 ML VIAL SC SCH (09:31)
[2023-11-20] MEDS: Alogliptin 25 MG TAB PO SCH (09:31)
[2023-11-20] MEDS ORDERED: Ipratropium/Albuterol 3 ML NEB ONE (20:24)
[2023-11-20] MEDS: Senokot S 8.6-50 MG TAB PO SCH (20:38)
[2023-11-20] MEDS ORDERED: Ipratropium/Albuterol 3 ML NEB NEB SCH (21:00)
[2023-11-21 03:32] LABS: Hematocrit 32.8 % (42.0-52.0); Hemoglobin 11.2 g/dL (14.0-18.0); Manual Diff?? YES; Mean Corpuscular HGB CONC 34.1 g/dL (32.0-36.0); Mean Corpuscular Hemoglobin 31.3 pg (27.0-31.0); Mean Platelet Volume 9.9 fL (7.4-10.4); Platelet Count 96 10x3/uL (130-400); RBC Distribution Width 17.4 % (11.5-14.5); Red Blood Cell (RBC) Count 3.58 mill/uL (4.70-6.10); White Blood Cell (WBC) Count 8.6 10x3/uL (4.8-10.8)
[2023-11-21 03:57] LABS: Anion Gap 15 mmol/L (10-20); BUN (Urea Nitrogen) 16 mg/dL (8.4-25.7); Calc. Creatinine Clearance 134 mL/min (70-130); Calcium 8.5 mg/dL (7.8-10.44); Carbon Dioxide 26 mmol/L (23-31); Chloride 90 mmol/L (98-107); Estimated GFR 105; Glucose 241 mg/dL (80-115); Potassium 4.8 mmol/L (3.5-5.1); Sodium 126 mmol/L (136-145)
[2023-11-21 03:59] LABS: Delete Auto Diff?? YES; Mean Corpuscular Volume 91.6 fl (78.0-98.0)
[2023-11-21] MEDS: methylPREDNISolone Sod Succ 40 MG VIAL IVP SCH ×2 (06:04→16:40)
[2023-11-21] MEDS: ALPRAZolam 0.25 MG TAB PO PRN ×2 (06:07→16:42)
[2023-11-21 06:24] LABS: Anisocytosis SLIGHT = 6-15 cells (100X) (0-5/hpf); Band 2 % (5-11); Lymphocytes 3 % (21-51); Metamyelocyte 2 % (0-0); Monocytes 9 % (0-10); Myelocyte 2 % (0-0); Neutrophil 82 % (42-75); Polychromasia SLIGHT = 2-3 cells (100X) (0-2/hpf)
[2023-11-21 06:25] LABS: Platelet Adequacy Comment Appears Decreased
[2023-11-21] MEDS: Ipratropium/Albuterol 3 ML NEB NEB SCH ×2 (07:14→19:26)
[2023-11-21] MEDS: Budesonide 0.5 MG/2 ML NEB INH SCH ×2 (07:16→19:27)
[2023-11-21] MEDS: guaiFENesin ER 600 MG TAB PO SCH ×2 (09:16→21:20)
[2023-11-21] MEDS: Sertraline 25 MG TAB PO SCH (09:16)
[2023-11-21] MEDS: Senokot S 8.6-50 MG TAB PO SCH ×2 (09:16→21:19)
[2023-11-21] MEDS: Apixaban 5 MG TAB PO SCH ×2 (09:16→21:20)
[2023-11-21] MEDS: metFORMIN 500 MG TAB PO SCH ×2 (09:16→16:40)
[2023-11-21] MEDS: Rosuvastatin 20 MG TAB PO SCH (09:16)
[2023-11-21] MEDS: Gabapentin 300 MG CAP PO SCH ×3 (09:17→21:20)
[2023-11-21] MEDS: Alogliptin 25 MG TAB PO SCH (09:17)
[2023-11-21] MEDS: Ipratropium/Albuterol 3 ML NEB NEB PRN ×2 (09:52→17:12)
[2023-11-21 11:27] VITALS: BMI 26.2
[2023-11-21 12:51] VITALS: BP 129/68
[2023-11-21] MEDS: HumaLOG 300 UNITS/3 ML VIAL SC PRN (21:20)
[2023-11-21] MEDS: Ondansetron ODT 4 MG TAB PO PRN (21:20)
[2023-11-22 03:21] LABS: Hemoglobin 11.2 g/dL (14.0-18.0); Manual Diff?? YES; Mean Corpuscular HGB CONC 33.9 g/dL (32.0-36.0); Mean Corpuscular Hemoglobin 31.6 pg (27.0-31.0); Mean Corpuscular Volume 93.2 fl (78.0-98.0); Mean Platelet Volume 10.4 fL (7.4-10.4); Platelet Count 106 10x3/uL (130-400); RBC Distribution Width 17.5 % (11.5-14.5); Red Blood Cell (RBC) Count 3.54 mill/uL (4.70-6.10); White Blood Cell (WBC) Count 9.6 10x3/uL (4.8-10.8)
[2023-11-22 03:42] LABS: Anion Gap 14 mmol/L (10-20); BUN (Urea Nitrogen) 17 mg/dL (8.4-25.7); Calc. Creatinine Clearance 149 mL/min (70-130); Calcium 8.4 mg/dL (7.8-10.44); Carbon Dioxide 28 mmol/L (23-31); Chloride 92 mmol/L (98-107); Estimated GFR 108; Glucose 156 mg/dL (80-115); Potassium 4.8 mmol/L (3.5-5.1); Sodium 129 mmol/L (136-145)
[2023-11-22 03:55] LABS: Delete Auto Diff?? YES
[2023-11-22 04:51] LABS: Band 10 % (5-11); Lymphocytes 5 % (21-51); Monocytes 6 % (0-10); Neutrophil 79 % (42-75)
[2023-11-22] MEDS: methylPREDNISolone Sod Succ 40 MG VIAL IVP SCH (05:25)
[2023-11-22] MEDS: HumaLOG 300 UNITS/3 ML VIAL SC PRN ×3 (05:26→17:30)
[2023-11-22] MEDS: Ipratropium/Albuterol 3 ML NEB NEB SCH ×2 (07:22→19:32)
[2023-11-22] MEDS: Budesonide 0.5 MG/2 ML NEB INH SCH ×2 (07:22→19:33)
[2023-11-22] MEDS: Rosuvastatin 20 MG TAB PO SCH (07:33)
[2023-11-22] MEDS: guaiFENesin ER 600 MG TAB PO SCH ×2 (07:33→20:48)
[2023-11-22] MEDS: Senokot S 8.6-50 MG TAB PO SCH ×2 (07:33→20:51)
[2023-11-22] MEDS: Apixaban 5 MG TAB PO SCH ×2 (07:34→20:48)
[2023-11-22] MEDS: metFORMIN 500 MG TAB PO SCH ×2 (07:34→17:30)
[2023-11-22] MEDS: Gabapentin 300 MG CAP PO SCH ×3 (07:34→20:48)
[2023-11-22] MEDS: Alogliptin 25 MG TAB PO SCH (07:34)
[2023-11-22] MEDS: Sertraline 25 MG TAB PO SCH (07:34)
[2023-11-22] MEDS: ALPRAZolam 0.25 MG TAB PO PRN ×2 (07:36→14:46)
[2023-11-22] MEDS: Ipratropium/Albuterol 3 ML NEB NEB PRN (11:57)
[2023-11-22] MEDS ORDERED: Insulin Glargine 30 UNITS/0.3 ML VIAL SC SCH (16:30)
[2023-11-23] MEDS: Ipratropium/Albuterol 3 ML NEB NEB PRN (03:00)
[2023-11-23] MEDS: Apixaban 5 MG TAB PO SCH (07:43)
[2023-11-23] MEDS: Alogliptin 25 MG TAB PO SCH (07:43)
[2023-11-23] MEDS: Sertraline 25 MG TAB PO SCH (07:43)
[2023-11-23] MEDS: guaiFENesin ER 600 MG TAB PO SCH (07:43)
[2023-11-23] MEDS: metFORMIN 500 MG TAB PO SCH (07:43)
[2023-11-23] MEDS: Gabapentin 300 MG CAP PO SCH (07:44)
[2023-11-23] MEDS: Senokot S 8.6-50 MG TAB PO SCH (07:44)
[2023-11-23] MEDS: Rosuvastatin 20 MG TAB PO SCH (07:44)
[2023-11-23] MEDS: ALPRAZolam 0.25 MG TAB PO PRN (07:48)
[2023-11-23] MEDS: Ipratropium/Albuterol 3 ML NEB NEB SCH (08:00)
[2023-11-23] MEDS ORDERED: predniSONE 20 MG TAB PO SCH (08:00)
[2023-11-23] MEDS: Budesonide 0.5 MG/2 ML NEB INH SCH (08:01)
[2023-11-23 08:09] VITALS: TEMP 97.1
== END 2023-11-23 13:15 | disposition home or self-care (01) | DRG 242 ==
LOC: 2SE 10:54 → CCU 11-03 22:00 → IMCU/EMU 11-05 15:14 → CCU 11-10 16:34 → IMCU/EMU 11-14 13:48
PROVIDERS: ADMIT Internal Medicine; ATTEND Internal Medicine
PROC: 4A133R1 Monitoring of Arterial Saturation, Peripheral, Percutaneous Approach (ICD-10-PCS; 2023-11-03)
PROC: 5A0955A Assistance with Respiratory Ventilation, Greater than 96 Consecutive Hours, High Flow/Velocity Cannula (ICD-10-PCS; 2023-11-03)
PROC: 5A09457 Assistance with Respiratory Ventilation, 24-96 Consecutive Hours, Continuous Positive Airway Pressure (ICD-10-PCS; 2023-11-07)
PROC: 6A551Z2 Pheresis of Platelets, Multiple (ICD-10-PCS; 2023-11-09)
PROC: 0JH606Z Insertion of Pacemaker, Dual Chamber into Chest Subcutaneous Tissue and Fascia, Open Approach (ICD-10-PCS; principal; 2023-11-10)
PROC: 02H63JZ Insertion of Pacemaker Lead into Right Atrium, Percutaneous Approach (ICD-10-PCS; 2023-11-10)
PROC: 02583ZZ Destruction of Conduction Mechanism, Percutaneous Approach (ICD-10-PCS; 2023-11-10)
PROC: 02HK3JZ Insertion of Pacemaker Lead into Right Ventricle, Percutaneous Approach (ICD-10-PCS; 2023-11-10)
PROC: 3E033XZ Introduction of Vasopressor into Peripheral Vein, Percutaneous Approach (ICD-10-PCS; 2023-11-10)
DX: I48.91 Unspecified atrial fibrillation (principal); J96.21 Acute and chronic respiratory failure with hypoxia; C34.90 Malignant neoplasm of unspecified part of unspecified bronchus or lung; E87.1 Hypo-osmolality and hyponatremia; J70.0 Acute pulmonary manifestations due to radiation; C34.91 Malignant neoplasm of unspecified part of right bronchus or lung; E87.20 Acidosis, unspecified; I50.32 Chronic diastolic (congestive) heart failure; J44.9 Chronic obstructive pulmonary disease, unspecified; E11.40 Type 2 diabetes mellitus with diabetic neuropathy, unspecified; J84.10 Pulmonary fibrosis, unspecified; T17.990A Other foreign object in respiratory tract, part unspecified in causing asphyxiation, initial encounter; E11.51 Type 2 diabetes mellitus with diabetic peripheral angiopathy without gangrene; E87.5 Hyperkalemia; I48.92 Unspecified atrial flutter; I11.0 Hypertensive heart disease with heart failure; F41.9 Anxiety disorder, unspecified; D69.6 Thrombocytopenia, unspecified; E78.5 Hyperlipidemia, unspecified; Z79.899 Other long term (current) drug therapy; Z79.84 Long term (current) use of oral hypoglycemic drugs; Z98.890 Other specified postprocedural states; Z86.73 Personal history of transient ischemic attack (TIA), and cerebral infarction without residual deficits
CPT/HCPCS: 33208; 36415; 36416; 36430; 36600; 71045; 71275; 80048; 80053; 80202; 81001; 82805; 83605; 83880; 84145; 85025; 85379; 85384; 85610; 85730; 86850; 86900; 86901; 87070; 87081; 87205; 87633; 93005; 93010; 93613; 93620; 93621; 93650; 94002; 94003; 94640; 94660; 97139; C1760; C1785; C1894; C1898; J0692; J1160; J1265; J1580; J1642; J1644; J1815; J1940; J2001; J2250; J2370; J2704; J2920; J3010; J3370; J3490; J7050; J7512; J7620; J7626; P9035; Q0162; Q9967

== ENCOUNTER 2023-11-25 13:33 | Inpatient (IN) | payer OTHER ==
[2023-11-25] MEDS ORDERED: Budesonide 0.5 MG/2 ML NEB ONE (13:52)
[2023-11-25] MEDS ORDERED: Ipratropium/Albuterol 3 ML NEB ONE (13:52)
[2023-11-25] MEDS ORDERED: LORazepam 2 MG/ML SYR.(CARPUJECT) ONE (14:05)
[2023-11-25] MEDS ORDERED: Ondansetron PF 4 MG/2 ML Vial IVP PRN (15:53)
[2023-11-25] MEDS ORDERED: Acetaminophen 325 MG TAB PO PRN (15:53)
[2023-11-25] MEDS ORDERED: Cefepime 2 GM in Sodium Chloride 0.9% 100 ML IVPB SCH (16:15)
[2023-11-25] MEDS ORDERED: methylPREDNISolone Sod Succ/PF 125 MG/2 ML VIAL IVP SCH (16:15)
[2023-11-25] MEDS ORDERED: Dextrose 5% in Water 1,000 ML IV PRN (16:29)
[2023-11-25] MEDS ORDERED: Dextrose 50% Abboject 50 ML SYRINGE SLOW IVP PRN (16:29)
[2023-11-25] MEDS ORDERED: Glucagon 1 MG/ML KIT IM PRN (16:29)
[2023-11-25 16:55] LABS: Actual Bicarbonate (HCO3v) 21.7 mEq/L (22-28); Base Excess -2.7 mEq/L (-2.0 to +3.0); Calcium, Ionized (venous) 1.07 mmol/L (1.16-1.32); Chloride (VBG) 94 mmol/L (98-106); Hematocrit-VBG 38 % (42.0-52.0); Potassium (VBG) 3.96 mmol/L (3.70-5.30); Sodium 131 mmol/L (133-146); pH (venous) 7.391 (7.32-7.43)
[2023-11-25] MEDS ORDERED: LevoFLOXacin 750 mg/D5W 750 MG in Premix 1 BAG IVPB SCH (17:00)
[2023-11-25 17:06] LABS: INR-International Normal Ratio 1.3; Prothrombin Time 16.4 sec (12.0-14.7)
[2023-11-25 17:07] LABS: PTT 23.8 sec (22.9-36.1)
[2023-11-25 17:08] LABS: Troponin I 0.184 ng/mL (< 0.028)
[2023-11-25] MEDS ORDERED: LevoFLOXacin 750 mg/D5W 150 ml Premix Bag ONE (17:10)
[2023-11-25] MEDS ORDERED: methylPREDNISolone Sod Succ/PF 125 MG/2 ML VIAL ONE (17:10)
[2023-11-25] MEDS ORDERED: Cefepime 2 GM VIAL ONE (17:10)
[2023-11-25] MEDS ORDERED: Sodium Chloride 0.9% 100 ML ONE (17:11)
[2023-11-25] MEDS ORDERED: ALPRAZolam 0.25 MG TAB PO PRN (17:27)
[2023-11-25] MEDS ORDERED: Empagliflozin 10 MG TAB PO SCH (17:45)
[2023-11-25] MEDS ORDERED: Furosemide 40 MG (4 mL) VIAL SLOW IVP SCH (17:45)
[2023-11-25] MEDS ORDERED: Furosemide 20 MG (2 mL) VIAL ONE (18:18)
[2023-11-25] MEDS ORDERED: methylPREDNISolone Sod Succ 40 MG VIAL ONE ×2 (18:19→23:47)
[2023-11-25 18:22] LABS: Legionella Urinary Ag Negative (Negative); Strep pneumo Urine Ag NEGATIVE (NEGATIVE)
[2023-11-25] MEDS ORDERED: HumaLOG 300 UNITS/3 ML VIAL ONE (18:22)
[2023-11-25] MEDS: methylPREDNISolone Sod Succ 40 MG VIAL IVP SCH ×2 (18:30→23:56)
[2023-11-25] MEDS: HumaLOG 300 UNITS/3 ML VIAL SC PRN (18:31)
[2023-11-25] MEDS ORDERED: ALPRAZolam 1 MG TAB ONE (18:35)
[2023-11-25] MEDS: ALPRAZolam 0.5 MG TAB PO PRN (18:42)
[2023-11-25] MEDS: Ipratropium/Albuterol 3 ML NEB NEB SCH (18:54)
[2023-11-25] MEDS ORDERED: Vancomycin 1 GM in Sodium Chloride 0.9% 250 ML 300 ML IVPB SCH (21:00)
[2023-11-25] MEDS ORDERED: Vancomycin (BATCH) 1.75 GM in Premix 1 BAG IVPB SCH (21:30)
[2023-11-25] MEDS ORDERED: Gabapentin 300 MG CAP ONE (21:38)
[2023-11-25] MEDS: Gabapentin 300 MG CAP PO SCH (21:44)
[2023-11-25 21:49] LABS: Troponin I 0.176 ng/mL (< 0.028)
[2023-11-25] MEDS ORDERED: Enoxaparin 100 MG (1 mL) SYRINGE SC SCH (22:45)
[2023-11-25] MEDS ORDERED: Lorazepam 0.5 MG TAB PO SCH (22:45)
[2023-11-25] MEDS ORDERED: Lorazepam 1 MG TAB ONE (22:52)
[2023-11-26] MEDS: Ipratropium/Albuterol 3 ML NEB NEB SCH ×5 (00:42→22:11)
[2023-11-26] MEDS ORDERED: Cefepime 2 GM in Sodium Chloride 0.9% 100 ML IVPB SCH (01:00)
[2023-11-26] MEDS ORDERED: Sodium Chloride 0.9% 100 ML ONE ×2 (04:01→12:43)
[2023-11-26] MEDS ORDERED: Cefepime 2 GM VIAL ONE ×2 (04:01→12:43)
[2023-11-26] MEDS: Cefepime 2 GM in Sodium Chloride 0.9% 100 ML IVPB SCH ×3 (04:09→20:45)
[2023-11-26] MEDS ORDERED: methylPREDNISolone Sod Succ 40 MG VIAL ONE ×2 (05:42→12:42)
[2023-11-26] MEDS: Vancomycin (BATCH) 1.25 GM in Premix 1 BAG IVPB SCH ×3 (05:51→23:28)
[2023-11-26] MEDS: methylPREDNISolone Sod Succ 40 MG VIAL IVP SCH ×4 (05:51→23:28)
[2023-11-26] MEDS ORDERED: Ipratropium/Albuterol 3 ML NEB ONE ×2 (07:04→13:19)
[2023-11-26] MEDS ORDERED: Gabapentin 300 MG CAP ONE (09:02)
[2023-11-26] MEDS ORDERED: Aspirin Chewable 81 MG TAB ONE (09:02)
[2023-11-26] MEDS ORDERED: Sertraline 100 MG TAB ONE (09:02)
[2023-11-26] MEDS ORDERED: Enoxaparin 100 MG (1 mL) SYRINGE ONE (09:03)
[2023-11-26] MEDS: Empagliflozin 10 MG TAB PO SCH (09:16)
[2023-11-26] MEDS: Gabapentin 300 MG CAP PO SCH ×3 (09:16→20:46)
[2023-11-26] MEDS: Aspirin Chewable 81 MG TAB PO SCH (09:16)
[2023-11-26] MEDS: Sertraline 100 MG TAB PO SCH (09:19)
[2023-11-26] MEDS: Enoxaparin 100 MG (1 mL) SYRINGE SC SCH ×5 (09:19→20:47)
[2023-11-26] MEDS ORDERED: ALPRAZolam 0.25 MG TAB ONE (09:22)
[2023-11-26] MEDS: ALPRAZolam 0.5 MG TAB PO PRN ×3 (09:29→20:47)
[2023-11-26] MEDS ORDERED: Furosemide 40 MG (4 mL) VIAL SLOW IVP SCH (13:00)
[2023-11-26] MEDS ORDERED: Potassium Chloride 20 MEQ TAB PO SCH (13:00)
[2023-11-26] MEDS ORDERED: Potassium Chloride 20 MEQ TAB ONE (13:20)
[2023-11-26] MEDS ORDERED: Furosemide 40 MG (4 mL) VIAL ONE (13:20)
[2023-11-26] MEDS: LevoFLOXacin 750 mg/D5W 750 MG in Premix 1 BAG IVPB SCH (16:10)
[2023-11-26 17:23] LABS: Anion Gap 15 mmol/L (10-20); BUN (Urea Nitrogen) 20 mg/dL (8.4-25.7); Calc. Creatinine Clearance 108 mL/min (70-130); Calcium 8.5 mg/dL (7.8-10.44); Carbon Dioxide 25 mmol/L (23-31); Chloride 97 mmol/L (98-107); Estimated GFR 98; Glucose 297 mg/dL (80-115); Potassium 4.1 mmol/L (3.5-5.1); Sodium 133 mmol/L (136-145)
[2023-11-26 17:59] LABS: #Monocytes 0.7 thou/uL (0.11-0.59); #Neutrophils 11.5 thou/uL (1.40-6.50); %Basophils 0.1 % (0.0-1.0); %Lymphocytes 0.6 % (21.0-51.0); %Monocytes 5.4 % (0.0-10.0); %Neutrophils 92.4 % (42.0-75.0); Hematocrit 34.3 % (42.0-52.0); Hemoglobin 11.1 g/dL (14.0-18.0); Mean Corpuscular HGB CONC 32.4 g/dL (32.0-36.0); Mean Corpuscular Hemoglobin 31.7 pg (27.0-31.0); Mean Platelet Volume 10.1 fL (7.4-10.4); Platelet Count 130 10x3/uL (130-400); RBC Distribution Width 17.7 % (11.5-14.5); White Blood Cell (WBC) Count 12.5 10x3/uL (4.8-10.8)
[2023-11-26 18:08] LABS: Hemoglobin A1c 7.4 % (4.0-6.0)
[2023-11-26 18:20] LABS: ALT (SGPT) 28 U/L (8-55); AST (SGOT) 9 U/L (5-34); Albumin 3.1 g/dL (3.4-4.8); Alkaline Phosphatase 85 U/L (40-110); Anion Gap 16 mmol/L (10-20); BUN (Urea Nitrogen) 20 mg/dL (8.4-25.7); Bilirubin, Direct 0.3 mg/dL (0.1-0.3); Bilirubin, Total 0.5 mg/dL (0.2-1.2); Calc. Creatinine Clearance 109 mL/min (70-130); Calcium 8.3 mg/dL (7.8-10.44); Carbon Dioxide 22 mmol/L (23-31); Cardiac Risk 2.4 (Less than 4.5); Chloride 98 mmol/L (98-107); Cholesterol 111 mg/dl (< 200 Desired); Estimated GFR 99; Glucose 380 mg/dL (80-115); HDL Cholesterol 46 mg/dL (>60 Neg Risk); LDL Cholesterol, Calculated 32 mg/dL; Magnesium 2.4 mg/dL (1.6-2.6); Potassium 4.1 mmol/L (3.5-5.1); Protein, Total 5.4 g/dL (5.8-8.1); Sodium 132 mmol/L (136-145); Triglycerides 167 mg/dL (Less than 150)
[2023-11-26] MEDS: HumaLOG 300 UNITS/3 ML VIAL SC PRN ×2 (18:26→22:36)
[2023-11-26 21:15] LABS: Vancomycin, Trough 25.2 ug/mL
[2023-11-27] MEDS: Ipratropium/Albuterol 3 ML NEB NEB PRN (02:13)
[2023-11-27] MEDS: Cefepime 2 GM in Sodium Chloride 0.9% 100 ML IVPB SCH ×3 (03:41→20:08)
[2023-11-27] MEDS: HumaLOG 300 UNITS/3 ML VIAL SC PRN ×4 (03:56→23:23)
[2023-11-27 04:17] LABS: #Monocytes 0.7 thou/uL (0.11-0.59); #Neutrophils 11.1 thou/uL (1.40-6.50); %Basophils 0.1 % (0.0-1.0); %Lymphocytes 0.4 % (21.0-51.0); %Monocytes 6.1 % (0.0-10.0); %Neutrophils 91.7 % (42.0-75.0); Hematocrit 31.2 % (42.0-52.0); Hemoglobin 10.4 g/dL (14.0-18.0); Mean Corpuscular HGB CONC 33.3 g/dL (32.0-36.0); Mean Corpuscular Hemoglobin 31.7 pg (27.0-31.0); Mean Corpuscular Volume 95.1 fl (78.0-98.0); Mean Platelet Volume 9.4 fL (7.4-10.4); Platelet Count 116 10x3/uL (130-400); RBC Distribution Width 17.6 % (11.5-14.5); Red Blood Cell (RBC) Count 3.28 mill/uL (4.70-6.10); White Blood Cell (WBC) Count 12.1 10x3/uL (4.8-10.8)
[2023-11-27 04:40] LABS: Anion Gap 14 mmol/L (10-20); BUN (Urea Nitrogen) 24 mg/dL (8.4-25.7); Calc. Creatinine Clearance 123 mL/min (70-130); Calcium 8.1 mg/dL (7.8-10.44); Carbon Dioxide 24 mmol/L (23-31); Chloride 100 mmol/L (98-107); Estimated GFR 104; Glucose 269 mg/dL (80-115); Magnesium 1.6 mg/dL (1.6-2.6); Potassium 4.1 mmol/L (3.5-5.1); Sodium 134 mmol/L (136-145)
[2023-11-27] MEDS: methylPREDNISolone Sod Succ 40 MG VIAL IVP SCH ×4 (06:01→23:25)
[2023-11-27] MEDS: Furosemide 20 MG (2 mL) VIAL SLOW IVP SCH ×2 (06:01→14:55)
[2023-11-27] MEDS: Ipratropium/Albuterol 3 ML NEB NEB SCH ×3 (07:27→18:26)
[2023-11-27 07:55] LABS: Vancomycin, Trough 22.9 ug/mL
[2023-11-27] MEDS: Enoxaparin 100 MG (1 mL) SYRINGE SC SCH ×2 (08:44→20:11)
[2023-11-27] MEDS: Aspirin Chewable 81 MG TAB PO SCH (08:45)
[2023-11-27] MEDS: ALPRAZolam 0.5 MG TAB PO PRN ×3 (08:45→17:42)
[2023-11-27] MEDS: Potassium Chloride 20 MEQ TAB PO SCH (08:45)
[2023-11-27] MEDS: Sertraline 100 MG TAB PO SCH (08:45)
[2023-11-27] MEDS: Gabapentin 300 MG CAP PO SCH ×3 (08:45→20:09)
[2023-11-27] MEDS: Empagliflozin 10 MG TAB PO SCH (08:46)
[2023-11-27] MEDS: Vancomycin (BATCH) 1.25 GM in Premix 1 BAG IVPB SCH (08:58)
[2023-11-27] MEDS ORDERED: FLU VACC QS2023-24(6MOS UP)/PF 60 MCG/0.5 ML SYRINGE IM ONE (09:00)
[2023-11-27] MEDS ORDERED: Vancomycin (BATCH) 1.25 GM in Premix 1 BAG IVPB SCH (12:00)
[2023-11-27] MEDS: LevoFLOXacin 750 mg/D5W 750 MG in Premix 1 BAG IVPB SCH (14:55)
[2023-11-28] MEDS: Ipratropium/Albuterol 3 ML NEB NEB SCH ×4 (00:25→18:31)
[2023-11-28 03:22] LABS: #Monocytes 0.5 thou/uL (0.11-0.59); #Neutrophils 8.8 thou/uL (1.40-6.50); %Basophils 0.1 % (0.0-1.0); %Lymphocytes 0.6 % (21.0-51.0); %Monocytes 5.6 % (0.0-10.0); %Neutrophils 92.2 % (42.0-75.0); Hematocrit 33.7 % (42.0-52.0); Hemoglobin 10.6 g/dL (14.0-18.0); Mean Corpuscular HGB CONC 31.5 g/dL (32.0-36.0); Mean Corpuscular Hemoglobin 31.5 pg (27.0-31.0); Mean Platelet Volume 10.2 fL (7.4-10.4); Platelet Count 106 10x3/uL (130-400); RBC Distribution Width 17.4 % (11.5-14.5); Red Blood Cell (RBC) Count 3.36 mill/uL (4.70-6.10); White Blood Cell (WBC) Count 9.6 10x3/uL (4.8-10.8)
[2023-11-28 03:28] LABS: Mean Corpuscular Volume 100.3 fl (78.0-98.0)
[2023-11-28 03:44] LABS: Anion Gap 17 mmol/L (10-20); BUN (Urea Nitrogen) 21 mg/dL (8.4-25.7); Calc. Creatinine Clearance 130 mL/min (70-130); Calcium 7.9 mg/dL (7.8-10.44); Carbon Dioxide 21 mmol/L (23-31); Chloride 99 mmol/L (98-107); Estimated GFR 106; Glucose 258 mg/dL (80-115); Magnesium 1.6 mg/dL (1.6-2.6); Potassium 4.1 mmol/L (3.5-5.1); Sodium 133 mmol/L (136-145)
[2023-11-28] MEDS: Cefepime 2 GM in Sodium Chloride 0.9% 100 ML IVPB SCH (04:10)
[2023-11-28] MEDS: Furosemide 20 MG (2 mL) VIAL SLOW IVP SCH ×2 (06:15→16:26)
[2023-11-28] MEDS: methylPREDNISolone Sod Succ 40 MG VIAL IVP SCH ×5 (06:15→23:55)
[2023-11-28] MEDS: HumaLOG 300 UNITS/3 ML VIAL SC PRN ×4 (06:19→20:37)
[2023-11-28] MEDS: Enoxaparin 100 MG (1 mL) SYRINGE SC SCH ×2 (08:13→20:32)
[2023-11-28] MEDS: Gabapentin 300 MG CAP PO SCH ×3 (08:14→20:32)
[2023-11-28] MEDS: Potassium Chloride 20 MEQ TAB PO SCH (08:14)
[2023-11-28] MEDS: Aspirin Chewable 81 MG TAB PO SCH (08:14)
[2023-11-28] MEDS: Sertraline 100 MG TAB PO SCH (08:14)
[2023-11-28] MEDS: Empagliflozin 10 MG TAB PO SCH (08:15)
[2023-11-28] MEDS: ALPRAZolam 0.5 MG TAB PO PRN ×2 (08:16→16:26)
[2023-11-29] MEDS: Ipratropium/Albuterol 3 ML NEB NEB SCH ×5 (02:01→23:16)
[2023-11-29] MEDS: Furosemide 20 MG (2 mL) VIAL SLOW IVP SCH ×2 (06:31→14:28)
[2023-11-29] MEDS: HumaLOG 300 UNITS/3 ML VIAL SC PRN ×3 (06:31→20:15)
[2023-11-29] MEDS: methylPREDNISolone Sod Succ 40 MG VIAL IVP SCH ×4 (06:31→23:54)
[2023-11-29 08:05] LABS: #Monocytes 0.5 thou/uL (0.11-0.59); #Neutrophils 8.3 thou/uL (1.40-6.50); %Basophils 0.1 % (0.0-1.0); %Lymphocytes 0.7 % (21.0-51.0); %Monocytes 5.4 % (0.0-10.0); %Neutrophils 92.2 % (42.0-75.0); Hematocrit 34.4 % (42.0-52.0); Hemoglobin 11.4 g/dL (14.0-18.0); Mean Corpuscular HGB CONC 33.1 g/dL (32.0-36.0); Mean Corpuscular Hemoglobin 31.5 pg (27.0-31.0); Mean Platelet Volume 9.5 fL (7.4-10.4); RBC Distribution Width 17.2 % (11.5-14.5); Red Blood Cell (RBC) Count 3.62 mill/uL (4.70-6.10)
[2023-11-29 08:19] LABS: Anion Gap 17 mmol/L (10-20); BUN (Urea Nitrogen) 30 mg/dL (8.4-25.7); Calc. Creatinine Clearance 108 mL/min (70-130); Calcium 8.3 mg/dL (7.8-10.44); Carbon Dioxide 25 mmol/L (23-31); Chloride 96 mmol/L (98-107); Estimated GFR 100; Glucose 344 mg/dL (80-115); Magnesium 1.7 mg/dL (1.6-2.6); Potassium 3.9 mmol/L (3.5-5.1); Sodium 134 mmol/L (136-145)
[2023-11-29] MEDS: Gabapentin 300 MG CAP PO SCH ×3 (08:32→20:09)
[2023-11-29] MEDS: Sertraline 100 MG TAB PO SCH (08:32)
[2023-11-29] MEDS: Empagliflozin 10 MG TAB PO SCH (08:32)
[2023-11-29] MEDS: Aspirin Chewable 81 MG TAB PO SCH (08:32)
[2023-11-29] MEDS: Potassium Chloride 20 MEQ TAB PO SCH (08:32)
[2023-11-29] MEDS: ALPRAZolam 0.5 MG TAB PO PRN ×3 (08:32→20:15)
[2023-11-29] MEDS: Enoxaparin 100 MG (1 mL) SYRINGE SC SCH ×2 (08:33→20:09)
[2023-11-29 09:36] LABS: Platelet Count 106 10x3/uL (130-400)
[2023-11-29 23:19] LABS: QuantiFERON-TB Gold Plus Indeterminate (Negative)
[2023-11-30 05:35] LABS: #Monocytes 0.4 thou/uL (0.11-0.59); #Neutrophils 8.6 thou/uL (1.40-6.50); %Basophils 0.1 % (0.0-1.0); %Lymphocytes 0.4 % (21.0-51.0); %Monocytes 4.6 % (0.0-10.0); %Neutrophils 93.2 % (42.0-75.0); Hematocrit 33.3 % (42.0-52.0); Hemoglobin 11.4 g/dL (14.0-18.0); Mean Corpuscular HGB CONC 34.2 g/dL (32.0-36.0); Mean Corpuscular Hemoglobin 31.8 pg (27.0-31.0); Mean Platelet Volume 10.3 fL (7.4-10.4); RBC Distribution Width 17.1 % (11.5-14.5); Red Blood Cell (RBC) Count 3.58 mill/uL (4.70-6.10); White Blood Cell (WBC) Count 9.3 10x3/uL (4.8-10.8)
[2023-11-30 05:53] LABS: Platelet Count 96 10x3/uL (130-400)
[2023-11-30 05:59] LABS: Anion Gap 14 mmol/L (10-20); BUN (Urea Nitrogen) 28 mg/dL (8.4-25.7); Calc. Creatinine Clearance 129 mL/min (70-130); Calcium 8.5 mg/dL (7.8-10.44); Carbon Dioxide 28 mmol/L (23-31); Chloride 99 mmol/L (98-107); Estimated GFR 106; Glucose 259 mg/dL (80-115); Magnesium 2.1 mg/dL (1.6-2.6); Potassium 4.1 mmol/L (3.5-5.1); Sodium 137 mmol/L (136-145)
[2023-11-30] MEDS: methylPREDNISolone Sod Succ 40 MG VIAL IVP SCH ×3 (05:59→17:44)
[2023-11-30] MEDS: Furosemide 20 MG (2 mL) VIAL SLOW IVP SCH ×2 (06:00→13:57)
[2023-11-30] MEDS: HumaLOG 300 UNITS/3 ML VIAL SC PRN ×4 (06:05→22:41)
[2023-11-30] MEDS: Ipratropium/Albuterol 3 ML NEB NEB SCH ×3 (06:53→18:34)
[2023-11-30] MEDS: Potassium Chloride 20 MEQ TAB PO SCH (09:11)
[2023-11-30] MEDS: Aspirin Chewable 81 MG TAB PO SCH (09:11)
[2023-11-30] MEDS: Gabapentin 300 MG CAP PO SCH ×3 (09:11→21:40)
[2023-11-30] MEDS: Empagliflozin 10 MG TAB PO SCH (09:11)
[2023-11-30] MEDS: Enoxaparin 100 MG (1 mL) SYRINGE SC SCH ×2 (09:11→21:41)
[2023-11-30] MEDS: Insulin Glargine 30 UNITS/0.3 ML VIAL SC SCH (09:12)
[2023-11-30] MEDS: Sertraline 100 MG TAB PO SCH (09:12)
[2023-11-30] MEDS: Ipratropium/Albuterol 3 ML NEB NEB PRN (10:59)
[2023-11-30] MEDS: ALPRAZolam 0.5 MG TAB PO PRN ×2 (13:56→21:44)
[2023-12-01] MEDS: Ipratropium/Albuterol 3 ML NEB NEB SCH ×7 (00:27→22:49)
[2023-12-01] MEDS: methylPREDNISolone Sod Succ 40 MG VIAL IVP SCH ×4 (01:02→18:28)
[2023-12-01] MEDS: Furosemide 20 MG (2 mL) VIAL SLOW IVP SCH ×2 (05:33→16:10)
[2023-12-01] MEDS: HumaLOG 300 UNITS/3 ML VIAL SC PRN ×4 (05:39→20:24)
[2023-12-01 07:40] LABS: #Monocytes 0.3 thou/uL (0.11-0.59); #Neutrophils 9.2 thou/uL (1.40-6.50); %Lymphocytes 0.1 % (21.0-51.0); %Monocytes 3.2 % (0.0-10.0); Hemoglobin 11.3 g/dL (14.0-18.0); Mean Corpuscular HGB CONC 33.2 g/dL (32.0-36.0); Mean Corpuscular Hemoglobin 31.1 pg (27.0-31.0); Mean Corpuscular Volume 93.7 fl (78.0-98.0); Red Blood Cell (RBC) Count 3.63 mill/uL (4.70-6.10); White Blood Cell (WBC) Count 9.6 10x3/uL (4.8-10.8)
[2023-12-01 07:44] LABS: Platelet Count 85 10x3/uL (130-400)
[2023-12-01 08:06] LABS: Anion Gap 16 mmol/L (10-20); BUN (Urea Nitrogen) 26 mg/dL (8.4-25.7); Calc. Creatinine Clearance 121 mL/min (70-130); Calcium 8.2 mg/dL (7.8-10.44); Carbon Dioxide 27 mmol/L (23-31); Chloride 95 mmol/L (98-107); Estimated GFR 104; Glucose 325 mg/dL (80-115); Magnesium 4.7 mg/dL (1.6-2.6); Potassium 3.4 mmol/L (3.5-5.1); Sodium 135 mmol/L (136-145)
[2023-12-01] MEDS: ALPRAZolam 0.5 MG TAB PO PRN ×3 (08:25→20:22)
[2023-12-01] MEDS: Insulin Glargine 30 UNITS/0.3 ML VIAL SC SCH (08:25)
[2023-12-01] MEDS: Sertraline 100 MG TAB PO SCH (08:25)
[2023-12-01] MEDS: Empagliflozin 10 MG TAB PO SCH (08:25)
[2023-12-01] MEDS: Gabapentin 300 MG CAP PO SCH ×3 (08:25→20:22)
[2023-12-01] MEDS: Potassium Chloride 20 MEQ TAB PO SCH (08:25)
[2023-12-01] MEDS: Aspirin Chewable 81 MG TAB PO SCH (08:26)
[2023-12-01] MEDS ORDERED: Insulin Glargine 30 UNITS/0.3 ML VIAL SC SCH (08:39)
[2023-12-01] MEDS ORDERED: Potassium Chloride 20 MEQ TAB PO SCH (08:45)
[2023-12-01] MEDS ORDERED: Electrolyte Replacement Protocol 1 EACH FS SCH (08:45)
[2023-12-01] MEDS ORDERED: Electrolyte Replacement Protocol FS PRN (08:45)
[2023-12-01] MEDS ORDERED: Enoxaparin 80 MG (0.8 mL) SYRINGE SC SCH (09:00)
[2023-12-01] MEDS: Apixaban 5 MG TAB PO SCH ×2 (10:15→20:22)
[2023-12-01 13:48] LABS: Potassium 4.9 mmol/L (3.5-5.1)
[2023-12-01 23:13] LABS: Mycoplasma pneumoniae IgG AB 569 U/mL (0-99); Mycoplasma pneumoniae IgM AB Less than 770 U/mL (0-769)
[2023-12-02] MEDS: methylPREDNISolone Sod Succ 40 MG VIAL IVP SCH ×4 (00:38→18:14)
[2023-12-02] MEDS: Ipratropium/Albuterol 3 ML NEB NEB SCH ×6 (02:10→22:10)
[2023-12-02 04:16] LABS: #Monocytes 0.4 thou/uL (0.11-0.59); #Neutrophils 9.3 thou/uL (1.40-6.50); %Basophils 0.2 % (0.0-1.0); %Lymphocytes 0.1 % (21.0-51.0); %Monocytes 3.8 % (0.0-10.0); %Neutrophils 94.2 % (42.0-75.0); Hematocrit 33.9 % (42.0-52.0); Hemoglobin 11.6 g/dL (14.0-18.0); Mean Corpuscular HGB CONC 34.2 g/dL (32.0-36.0); Mean Corpuscular Hemoglobin 31.4 pg (27.0-31.0); Mean Corpuscular Volume 91.9 fl (78.0-98.0); Mean Platelet Volume 10.8 fL (7.4-10.4); RBC Distribution Width 16.7 % (11.5-14.5); Red Blood Cell (RBC) Count 3.69 mill/uL (4.70-6.10); White Blood Cell (WBC) Count 9.9 10x3/uL (4.8-10.8)
[2023-12-02 04:17] LABS: Platelet Count 74 10x3/uL (130-400)
[2023-12-02 04:43] LABS: Anion Gap 15 mmol/L (10-20); BUN (Urea Nitrogen) 30 mg/dL (8.4-25.7); Calc. Creatinine Clearance 130 mL/min (70-130); Calcium 8.4 mg/dL (7.8-10.44); Carbon Dioxide 26 mmol/L (23-31); Chloride 98 mmol/L (98-107); Estimated GFR 106; Glucose 270 mg/dL (80-115); Magnesium 2.8 mg/dL (1.6-2.6); Phosphorus 3.7 mg/dL (2.3-4.7); Sodium 135 mmol/L (136-145)
[2023-12-02] MEDS: Furosemide 20 MG (2 mL) VIAL SLOW IVP SCH ×2 (05:14→12:49)
[2023-12-02] MEDS: HumaLOG 300 UNITS/3 ML VIAL SC PRN ×3 (05:20→18:14)
[2023-12-02] MEDS ORDERED: Insulin Glargine 30 UNITS/0.3 ML VIAL SC SCH (09:00)
[2023-12-02] MEDS: Gabapentin 300 MG CAP PO SCH ×3 (09:11→20:01)
[2023-12-02] MEDS: Potassium Chloride 20 MEQ TAB PO SCH (09:11)
[2023-12-02] MEDS: Empagliflozin 10 MG TAB PO SCH (09:11)
[2023-12-02] MEDS: Sertraline 100 MG TAB PO SCH (09:12)
[2023-12-02] MEDS: Apixaban 5 MG TAB PO SCH ×2 (09:12→20:01)
[2023-12-02] MEDS: ALPRAZolam 0.5 MG TAB PO PRN ×2 (12:49→20:01)
[2023-12-02 13:28] VITALS: BMI 24.5
[2023-12-02 19:38] LABS: Coccidioides ABS (DID) Negative (Neg:<1:2)
[2023-12-03] MEDS: methylPREDNISolone Sod Succ 40 MG VIAL IVP SCH ×4 (01:42→20:48)
[2023-12-03] MEDS: Ipratropium/Albuterol 3 ML NEB NEB SCH ×6 (02:15→22:42)
[2023-12-03] MEDS: Furosemide 20 MG (2 mL) VIAL SLOW IVP SCH (06:49)
[2023-12-03] MEDS: HumaLOG 300 UNITS/3 ML VIAL SC PRN ×3 (07:11→20:55)
[2023-12-03] MEDS: Sertraline 100 MG TAB PO SCH (08:37)
[2023-12-03] MEDS: Empagliflozin 10 MG TAB PO SCH (08:37)
[2023-12-03] MEDS: Gabapentin 300 MG CAP PO SCH ×3 (08:37→20:49)
[2023-12-03] MEDS: Potassium Chloride 20 MEQ TAB PO SCH (08:37)
[2023-12-03] MEDS: Apixaban 5 MG TAB PO SCH ×2 (08:38→20:49)
[2023-12-03] MEDS: Insulin Glargine 30 UNITS/0.3 ML VIAL SC SCH (08:43)
[2023-12-03] MEDS: ALPRAZolam 0.5 MG TAB PO PRN (12:53)
[2023-12-03 15:15] LABS: A. flavus Negative (Neg:<1:1); A. fumigatus Negative (Neg:<1:1); A. niger Negative (Neg:<1:1)
[2023-12-04] MEDS: methylPREDNISolone Sod Succ 40 MG VIAL IVP SCH ×5 (00:59→23:23)
[2023-12-04] MEDS: Ipratropium/Albuterol 3 ML NEB NEB SCH ×6 (02:38→22:38)
[2023-12-04] MEDS: HumaLOG 300 UNITS/3 ML VIAL SC PRN ×4 (06:35→20:29)
[2023-12-04 06:36] LABS: #Monocytes 0.4 thou/uL (0.11-0.59); #Neutrophils 10.8 thou/uL (1.40-6.50); %Lymphocytes 0.3 % (21.0-51.0); %Monocytes 3.2 % (0.0-10.0); %Neutrophils 94.9 % (42.0-75.0); Hematocrit 35.2 % (42.0-52.0); Hemoglobin 11.8 g/dL (14.0-18.0); Mean Corpuscular HGB CONC 33.5 g/dL (32.0-36.0); Mean Corpuscular Hemoglobin 31.3 pg (27.0-31.0); Mean Corpuscular Volume 93.4 fl (78.0-98.0); Mean Platelet Volume 10.7 fL (7.4-10.4); Platelet Count 33 10x3/uL (130-400); RBC Distribution Width 16.8 % (11.5-14.5); Red Blood Cell (RBC) Count 3.77 mill/uL (4.70-6.10); White Blood Cell (WBC) Count 11.4 10x3/uL (4.8-10.8)
[2023-12-04 07:47] LABS: Anion Gap 14 mmol/L (10-20); BUN (Urea Nitrogen) 28 mg/dL (8.4-25.7); Calc. Creatinine Clearance 150 mL/min (70-130); Calcium 8.2 mg/dL (7.8-10.44); Carbon Dioxide 26 mmol/L (23-31); Chloride 96 mmol/L (98-107); Estimated GFR 110; Glucose 128 mg/dL (80-115); Sodium 132 mmol/L (136-145)
[2023-12-04] MEDS: Potassium Chloride 20 MEQ TAB PO SCH (08:10)
[2023-12-04] MEDS: Sertraline 100 MG TAB PO SCH (08:10)
[2023-12-04] MEDS: Gabapentin 300 MG CAP PO SCH ×3 (08:11→20:28)
[2023-12-04] MEDS: Empagliflozin 10 MG TAB PO SCH (08:11)
[2023-12-04] MEDS: Apixaban 5 MG TAB PO SCH (08:11)
[2023-12-04] MEDS: Insulin Glargine 30 UNITS/0.3 ML VIAL SC SCH (08:12)
[2023-12-04 08:54] LABS: #Monocytes 0.3 thou/uL (0.11-0.59); #Neutrophils 9.3 thou/uL (1.40-6.50); %Basophils 0.1 % (0.0-1.0); %Lymphocytes 0.5 % (21.0-51.0); %Monocytes 2.6 % (0.0-10.0); %Neutrophils 94.7 % (42.0-75.0); Hematocrit 36.6 % (42.0-52.0); Hemoglobin 12.1 g/dL (14.0-18.0); Mean Corpuscular HGB CONC 33.1 g/dL (32.0-36.0); Mean Corpuscular Hemoglobin 31.3 pg (27.0-31.0); Mean Corpuscular Volume 94.8 fl (78.0-98.0); RBC Distribution Width 16.9 % (11.5-14.5); Red Blood Cell (RBC) Count 3.86 mill/uL (4.70-6.10); White Blood Cell (WBC) Count 9.8 10x3/uL (4.8-10.8)
[2023-12-04 09:00] LABS: Platelet Count 32 10x3/uL (130-400)
[2023-12-04 09:01] LABS: Platelet Count 33 10x3/uL (130-400)
[2023-12-04 09:09] LABS: INR-International Normal Ratio 1.3; Prothrombin Time 16.5 sec (12.0-14.7)
[2023-12-04 09:10] LABS: Fibrinogen 292 mg/dL (253-463)
[2023-12-04 09:16] LABS: Iron 51 ug/dL (65-175); Iron Binding Capacity, Total 193 mcg/dL (261-462)
[2023-12-04 09:20] LABS: D-Dimer Test 8.94 *mcg/mL (0.27-0.43)
[2023-12-04 09:38] LABS: PTT 20.6 sec (22.9-36.1)
[2023-12-04 11:02] LABS: Ferritin 3952.22 ng/mL (22-322)
[2023-12-04] MEDS: ALPRAZolam 0.5 MG TAB PO PRN ×2 (14:06→20:28)
[2023-12-05] MEDS: Ipratropium/Albuterol 3 ML NEB NEB SCH ×6 (02:13→23:32)
[2023-12-05 04:19] LABS: #Eosinphils 0.3 thou/uL (0.0-0.7); #Monocytes 0.4 thou/uL (0.11-0.59); #Neutrophils 10.6 thou/uL (1.40-6.50); %Basophils 0.3 % (0.0-1.0); %Eosinophils 2.2 % (0.0-10.0); %Lymphocytes 0.3 % (21.0-51.0); %Monocytes 3.4 % (0.0-10.0); %Neutrophils 91.6 % (42.0-75.0); Hematocrit 35.5 % (42.0-52.0); Hemoglobin 11.8 g/dL (14.0-18.0); Mean Corpuscular HGB CONC 33.2 g/dL (32.0-36.0); Mean Corpuscular Hemoglobin 31.1 pg (27.0-31.0); Mean Corpuscular Volume 93.4 fl (78.0-98.0); RBC Distribution Width 16.5 % (11.5-14.5); White Blood Cell (WBC) Count 11.6 10x3/uL (4.8-10.8)
[2023-12-05 05:06] LABS: Platelet Count 27 10x3/uL (130-400)
[2023-12-05 05:10] LABS: Anion Gap 15 mmol/L (10-20); BUN (Urea Nitrogen) 24 mg/dL (8.4-25.7); Calc. Creatinine Clearance 173 mL/min (70-130); Calcium 8.1 mg/dL (7.8-10.44); Carbon Dioxide 25 mmol/L (23-31); Chloride 99 mmol/L (98-107); Estimated GFR 115; Glucose 90 mg/dL (80-115); Potassium 4.2 mmol/L (3.5-5.1); Sodium 135 mmol/L (136-145)
[2023-12-05] MEDS: methylPREDNISolone Sod Succ 40 MG VIAL IVP SCH ×4 (05:19→23:21)
[2023-12-05] MEDS: Sertraline 100 MG TAB PO SCH (08:49)
[2023-12-05] MEDS: Empagliflozin 10 MG TAB PO SCH (08:50)
[2023-12-05] MEDS: Multivit, Therapeutic 1 TAB PO SCH (08:50)
[2023-12-05] MEDS: Gabapentin 300 MG CAP PO SCH ×3 (08:50→21:03)
[2023-12-05] MEDS: Insulin Glargine 30 UNITS/0.3 ML VIAL SC SCH (08:50)
[2023-12-05] MEDS: Potassium Chloride 20 MEQ TAB PO SCH (08:50)
[2023-12-05] MEDS: ALPRAZolam 0.5 MG TAB PO PRN ×2 (09:00→14:29)
[2023-12-05] MEDS: HumaLOG 300 UNITS/3 ML VIAL SC PRN ×2 (13:23→17:33)
[2023-12-05] MEDS ORDERED: Dexmedetomidine In 0.9 % NaCl 100 ML IVPB SCH (17:30)
[2023-12-05] MEDS: Dexmedetomidine 400 MCG, Admixture Fee 1 EACH in Sodium Chloride 0.9% 96 ML IVPB SCH (18:55)
[2023-12-06] MEDS: Ipratropium/Albuterol 3 ML NEB NEB SCH ×6 (05:02→22:50)
[2023-12-06] MEDS: methylPREDNISolone Sod Succ 40 MG VIAL IVP SCH ×4 (05:56→23:42)
[2023-12-06 06:48] LABS: #Monocytes 0.4 thou/uL (0.11-0.59); #Neutrophils 10.4 thou/uL (1.40-6.50); %Basophils 0.1 % (0.0-1.0); %Lymphocytes 0.6 % (21.0-51.0); %Monocytes 3.6 % (0.0-10.0); %Neutrophils 94.2 % (42.0-75.0); Hematocrit 38.7 % (42.0-52.0); Hemoglobin 12.5 g/dL (14.0-18.0); Mean Corpuscular HGB CONC 32.3 g/dL (32.0-36.0); Mean Corpuscular Hemoglobin 31.6 pg (27.0-31.0); Mean Corpuscular Volume 97.7 fl (78.0-98.0); Mean Platelet Volume 11.3 fL (7.4-10.4); Red Blood Cell (RBC) Count 3.96 mill/uL (4.70-6.10)
[2023-12-06 06:54] LABS: Platelet Count 31 10x3/uL (130-400)
[2023-12-06 08:14] LABS: BUN (Urea Nitrogen) 30 mg/dL (8.4-25.7); Calc. Creatinine Clearance 138 mL/min (70-130); Calcium 7.7 mg/dL (7.8-10.44); Carbon Dioxide 17 mmol/L (23-31); Chloride 102 mmol/L (98-107); Estimated GFR 108; Glucose 193 mg/dL (80-115); Potassium 4.7 mmol/L (3.5-5.1); Sodium 133 mmol/L (136-145)
[2023-12-06] MEDS: Gabapentin 300 MG CAP PO SCH ×3 (09:20→20:22)
[2023-12-06] MEDS: Multivit, Therapeutic 1 TAB PO SCH (09:20)
[2023-12-06] MEDS: Sertraline 100 MG TAB PO SCH (09:20)
[2023-12-06] MEDS: Empagliflozin 10 MG TAB PO SCH (09:20)
[2023-12-06] MEDS: Potassium Chloride 20 MEQ TAB PO SCH (09:20)
[2023-12-06] MEDS: Insulin Glargine 30 UNITS/0.3 ML VIAL SC SCH (09:20)
[2023-12-06] MEDS: ALPRAZolam 0.5 MG TAB PO PRN ×2 (09:49→20:22)
[2023-12-06 10:18] LABS: Anion Gap 19 mmol/L (10-20)
[2023-12-06] MEDS ORDERED: Midodrine HCl 5 MG TAB PO SCH (12:15)
[2023-12-06] MEDS ORDERED: Furosemide 40 MG (4 mL) VIAL SLOW IVP SCH (14:00)
[2023-12-06] MEDS ORDERED: Mometasone/Formoterol 200/5 60 PUFF INH SCH (14:30)
[2023-12-06] MEDS: HumaLOG 300 UNITS/3 ML VIAL SC PRN ×2 (18:04→20:27)
[2023-12-06] MEDS: Mometasone/Formoterol 200/5 60 PUFF INH SCH (18:36)
[2023-12-06] MEDS: Midodrine HCl 5 MG TAB PO SCH (20:22)
[2023-12-06] MEDS: Dexmedetomidine 400 MCG, Admixture Fee 1 EACH in Sodium Chloride 0.9% 96 ML IVPB SCH (23:43)
[2023-12-07] MEDS: Ipratropium/Albuterol 3 ML NEB NEB SCH ×6 (02:53→21:49)
[2023-12-07] MEDS: methylPREDNISolone Sod Succ 40 MG VIAL IVP SCH ×3 (05:39→18:32)
[2023-12-07 06:48] LABS: #Monocytes 0.4 thou/uL (0.11-0.59); #Neutrophils 10.1 thou/uL (1.40-6.50); %Basophils 0.2 % (0.0-1.0); %Lymphocytes 0.3 % (21.0-51.0); %Monocytes 3.9 % (0.0-10.0); %Neutrophils 93.8 % (42.0-75.0); Hematocrit 35.9 % (42.0-52.0); Hemoglobin 11.6 g/dL (14.0-18.0); Mean Corpuscular HGB CONC 32.3 g/dL (32.0-36.0); Mean Corpuscular Hemoglobin 31.4 pg (27.0-31.0); Mean Corpuscular Volume 97.3 fl (78.0-98.0); RBC Distribution Width 16.9 % (11.5-14.5); Red Blood Cell (RBC) Count 3.69 mill/uL (4.70-6.10); White Blood Cell (WBC) Count 10.7 10x3/uL (4.8-10.8)
[2023-12-07] MEDS: Mometasone/Formoterol 200/5 60 PUFF INH SCH (07:20)
[2023-12-07] MEDS: Sertraline 100 MG TAB PO SCH (08:28)
[2023-12-07] MEDS: Potassium Chloride 20 MEQ TAB PO SCH (08:28)
[2023-12-07] MEDS: ALPRAZolam 0.5 MG TAB PO PRN (08:28)
[2023-12-07] MEDS: Gabapentin 300 MG CAP PO SCH ×3 (08:28→20:43)
[2023-12-07] MEDS: Multivit, Therapeutic 1 TAB PO SCH (08:28)
[2023-12-07] MEDS: Empagliflozin 10 MG TAB PO SCH (08:28)
[2023-12-07] MEDS: Midodrine HCl 5 MG TAB PO SCH ×3 (08:28→20:43)
[2023-12-07] MEDS: Insulin Glargine 30 UNITS/0.3 ML VIAL SC SCH (08:29)
[2023-12-07 08:33] LABS: Platelet Count 17 10x3/uL (130-400)
[2023-12-07] MEDS: HumaLOG 300 UNITS/3 ML VIAL SC PRN (12:47)
[2023-12-07] MEDS ORDERED: Morphine 4 MG/ML VIAL ONE (13:43)
[2023-12-07] MEDS ORDERED: Morphine 2 MG/ML VIAL SLOW IVP PRN ×2 (13:45→14:45)
[2023-12-07] MEDS ORDERED: Morphine 2 MG/ML VIAL SLOW IVP SCH (13:45)
[2023-12-07] MEDS ORDERED: Fentanyl BOLUS 250 ML IVPB PRN (14:45)
[2023-12-07] MEDS ORDERED: Propofol BOLUS 1,000 MG/100 ML VIAL IV PRN (14:45)
[2023-12-07] MEDS ORDERED: Lorazepam 2 MG/ML VIAL SLOW IVP PRN (14:45)
[2023-12-07] MEDS ORDERED: Propofol 1,000 MG/100 ML VIAL IV PRN (14:45)
[2023-12-07] MEDS ORDERED: Fentanyl CADD 100 ML IV SCH (14:45)
[2023-12-07] MEDS ORDERED: DISCONTINUE PREVIOUS NARCOTIC PAIN MEDICATIONS AND BENZODIAZEPINES FS SCH (14:45)
[2023-12-07 15:09] LABS: Actual Bicarbonate (HCO3a) 21.7 mEq/L (22-28); Base Excess (BEa) -4.2 mEq/L (-2.0 to +3.0); CO2 Tension 42.8 mmHg (35.0-45.0); Calcium, Ionized (arterial) 1.14 mmol/L (1.12-1.30); Carboxyhemoglobin (COHb) 1.5 gm% (0.0-3.0); Hematocrit-ABG 34 % (42.0-52.0); Hemoglobin (Hb) 11.7 g/dL (14.0-18.0); Potassium - ABG Lab 4.18 mmol/L (3.70-5.30); pH, Arterial 7.323 (7.35-7.45)
[2023-12-07 15:13] LABS: O2 Tension (PaO2), arterial 52.9 mmHg (> 80.0)
[2023-12-07 15:14] LABS: Puncture Site RRA
[2023-12-07] MEDS ORDERED: Ventilator Sedation Protocol 1 EACH FS SCH (16:00)
[2023-12-07] MEDS ORDERED: Vecuronium 10 MG VIAL IV SCH (16:15)
[2023-12-07 16:37] LABS: Heparin-Induced Ab (HITA) 0.039 OD (0.000-0.400)
[2023-12-07] MEDS ORDERED: NOREPINEPHRINE 8 MG/250 ML-D5W 250 ML ONE (17:01)
[2023-12-07] MEDS ORDERED: NOREPINEPHRINE 8 MG/250 ML-D5W 250 ML IVPB SCH ×2 (17:15)
[2023-12-07] MEDS ORDERED: Mometasone/Formoterol 200/5 60 PUFF INH SCH (18:30)
[2023-12-07] MEDS: Vecuronium 10 MG VIAL IVP PRN ×2 (18:55→23:54)
[2023-12-07] MEDS ORDERED: Famotidine/PF 20 mg/2ml Vial SLOW IVP SCH (21:00)
[2023-12-07] MEDS ORDERED: methylPREDNISolone Sod Succ 40 MG VIAL IVP SCH (21:13)
[2023-12-07] MEDS ORDERED: Sodium Chloride 0.9% 1,000 ML IV SCH (21:30)
[2023-12-07] MEDS ORDERED: methylPREDNISolone Sod Succ/PF 250 MG, Admixture Fee 1 EACH in Sodium Chloride 0.9% 100 ML IVPB SCH (22:00)
[2023-12-07] MEDS ORDERED: Vasopressin 20 UNITS in Sodium Chloride 0.9% 50 ML IV SCH (22:30)
[2023-12-07] MEDS ORDERED: Albumin 25% 25 GM (100 mL) BOT IVPB SCH (22:30)
[2023-12-07] MEDS: METHYLPREDNISOLONE SOD SUCC IVPB SCH (22:48)
[2023-12-07] MEDS: [UNRECOGNIZED DRUG - OTHER] IVPB SCH (22:48)
[2023-12-07] MEDS: ADMIXTURE FEE IVPB SCH (22:48)
[2023-12-08 01:43] VITALS: TEMP 98.3
[2023-12-08] MEDS: Ipratropium/Albuterol 3 ML NEB NEB SCH (01:57)
[2023-12-08 01:59] VITALS: BP 95/63
[2023-12-08] MEDS: ADMIXTURE FEE IVPB SCH (04:10)
[2023-12-08] MEDS: [UNRECOGNIZED DRUG - OTHER] IVPB SCH (04:10)
[2023-12-08] MEDS: METHYLPREDNISOLONE SOD SUCC IVPB SCH (04:10)
== END 2023-12-08 04:58 | disposition expired | DRG 208 ==
LOC: ERS 13:33 → ERHOLD 15:50 → IMCU/EMU 11-26 15:00 → CCU 12-07 14:08
PROVIDERS: ADMIT Family Medicine; ATTEND Family Medicine
PROC: 5A0955A Assistance with Respiratory Ventilation, Greater than 96 Consecutive Hours, High Flow/Velocity Cannula (ICD-10-PCS; 2023-11-25)
PROC: 5A09357 Assistance with Respiratory Ventilation, Less than 24 Consecutive Hours, Continuous Positive Airway Pressure (ICD-10-PCS; 2023-11-29)
PROC: 02HV33Z Insertion of Infusion Device into Superior Vena Cava, Percutaneous Approach (ICD-10-PCS; principal; 2023-12-07)
PROC: 5A1935Z Respiratory Ventilation, Less than 24 Consecutive Hours (ICD-10-PCS; 2023-12-07)
PROC: 4A133R1 Monitoring of Arterial Saturation, Peripheral, Percutaneous Approach (ICD-10-PCS; 2023-12-07)
PROC: 3E033XZ Introduction of Vasopressor into Peripheral Vein, Percutaneous Approach (ICD-10-PCS; 2023-12-07)
PROC: 0BH17EZ Insertion of Endotracheal Airway into Trachea, Via Natural or Artificial Opening (ICD-10-PCS; 2023-12-07)
DX: J70.1 Chronic and other pulmonary manifestations due to radiation (principal); I21.A1 Myocardial infarction type 2; I50.33 Acute on chronic diastolic (congestive) heart failure; J80 Acute respiratory distress syndrome; I48.92 Unspecified atrial flutter; C34.92 Malignant neoplasm of unspecified part of left bronchus or lung; D84.821 Immunodeficiency due to drugs; Z66 Do not resuscitate; Z51.5 Encounter for palliative care; D69.6 Thrombocytopenia, unspecified; E78.00 Pure hypercholesterolemia, unspecified; F17.210 Nicotine dependence, cigarettes, uncomplicated; E11.65 Type 2 diabetes mellitus with hyperglycemia; R53.81 Other malaise; J44.9 Chronic obstructive pulmonary disease, unspecified; I73.9 Peripheral vascular disease, unspecified; E87.6 Hypokalemia; D64.9 Anemia, unspecified; I48.0 Paroxysmal atrial fibrillation; I11.0 Hypertensive heart disease with heart failure; F41.9 Anxiety disorder, unspecified; Z99.81 Dependence on supplemental oxygen; Z79.01 Long term (current) use of anticoagulants; Z95.0 Presence of cardiac pacemaker; Z79.899 Other long term (current) drug therapy; Z79.84 Long term (current) use of oral hypoglycemic drugs; Z79.51 Long term (current) use of inhaled steroids; Z90.89 Acquired absence of other organs; Z98.890 Other specified postprocedural states; Z86.73 Personal history of transient ischemic attack (TIA), and cerebral infarction without residual deficits; Z71.6 Tobacco abuse counseling
CPT/HCPCS: 36415; 36416; 36600; 71045; 80048; 80061; 80076; 80202; 82607; 82728; 82805; 83010; 83036; 83540; 83550; 83615; 83735; 83880; 84100; 84443; 85025; 85046; 85049; 85300; 85362; 85379; 85384; 85520; 85610; 85730; 86480; 86606; 86635; 86850; 86900; 86901; 87081; 87385; 87449; 87899; 93306; 94002; 94003; 94640; 94660; 94760; 96374; 97139; J0692; J1650; J1815; J1940; J1956; J2060; J2272; J2704; J2920; J2930; J3010; J3370; J3490; J7050; J7620; J7626; P9047; S0028